=== PATIENT | male | born 1960 | race Caucasian/White ===

== ENCOUNTER 2017-02-07 12:28 | Inpatient (IN) | payer MEDICAID ==
[~2017-02-07] VITALS: Ht 177.8 cm; Wt 68.0 kg
[2017-02-07 13:10] VITALS: BP 105/78
[2017-02-07] MEDS ORDERED: ACETAMINOPHEN500 M7 PO (13:46)
[2017-02-07] MEDS ORDERED: PRO-AMATINE5 M1 ORAL (13:46)
[2017-02-07] MEDS ORDERED: MULTIVITAMINS1 EA14 PO (13:46)
[2017-02-07] MEDS ORDERED: SYNTHROID75 MCG ORAL (13:46)
[2017-02-07] MEDS ORDERED: NEOMYCIN SULFA500 MG ORAL (13:46)
[2017-02-07] MEDS ORDERED: SPIRONOLACTONE1 EACH ORAL (13:46)
[2017-02-07] MEDS ORDERED: LASIX20 M1 ORAL (13:46)
[2017-02-07 13:51] LABS: BASOPHILS % (AUTO) 1.5 % (0.0-2.0); EOSINOPHILS % (AUTO) 0.2 % (0.0-3.0); MEAN CORPUSCULAR HEMOGLOBIN 34.7 PG (27.0-31.0); MEAN CORPUSCULAR HGB CONC 31.6 G/DL (32.0-36.0); MEAN CORPUSCULAR VOLUME 110 FL (80-99); MEAN PLATELET VOLUME 5.3 FL (6.5-10.1); MONOCYTES % (AUTO) 9.6 % (1.0-10.0); NEUTROPHILS % (AUTO) 50.7 % (45.0-75.0); PLATELET COUNT 166 K/UL (150-450); RED BLOOD COUNT 3.07 M/UL (4.70-6.10); RED CELL DISTRIBUTION WIDTH 15.1 % (11.6-14.8); WHITE BLOOD COUNT 7.5 K/UL (4.8-10.8)
[2017-02-07 13:54] LABS: ANION GAP 10 mmol/L (5-15); CALCIUM 8.2 MG/DL (8.5-10.1); CARBON DIOXIDE 27 MMOL/L (21-32); CHLORIDE 99 MMOL/L (98-107); CREATININE 0.6 MG/DL (0.55-1.30); GLOMERULAR FILTRATION RATE > 60 mL/min (>60); POTASSIUM 3.8 MMOL/L (3.5-5.1); SODIUM 136 MMOL/L (136-145)
--- NOTE | 2017-02-07 13:56 | Diagnostic Imaging Report ---
Indication: Dyspnea Comparison: None A single view chest radiograph was obtained. Findings: Mild linear atelectasis left midlung demonstrated. Lung volumes are low bilaterally. Heart size is normal. Bones are slight osteopenic. Impression: No acute findings
[2017-02-07 13:57] LABS: INR 1.1 (0.9-1.1)
[2017-02-07 13:59] LABS: ALANINE AMINOTRANSFERASE 18 U/L (12-78); ALBUMIN/GLOBULIN RATIO 0.5 (1.0-2.7); ASPARTATE AMINO TRANSFERASE 38 U/L (15-37); LIPASE 597 U/L (73-393); TOTAL PROTEIN 7.7 G/DL (6.4-8.2)
[2017-02-07] MEDS ORDERED: Morphine Sulfate 4mg/ml Inj IVP ONE (14:30)
[2017-02-07 14:32] LABS: APPEARANCE,URINE CLEAR; KETONES,URINE NEGATIVE (NEGATIVE); LEUKOCYTE ESTERASE ,URINE NEGATIVE (NEGATIVE); NITRITE,URINE NEGATIVE (NEGATIVE); PH,URINE 6 (4.5-8.0); PROTEIN,URINE NEGATIVE (NEGATIVE); UROBILINOGEN,URINE NORMAL MG/DL (0.0-1.0)
--- NOTE | 2017-02-07 14:41 | Diagnostic Imaging Report ---
Indication: Back pain Technique: Continuous helical transaxial imaging of the lumbar spine was obtained from the lung bases to the pubic symphysis. No IV contrast was administered. Coronal 2-D reformats were also obtained. Study obtained in a Siemens sensation [address] Total Dose length Product (DLP): [address] Dose Index Volume (CTDIvol): . 25, 16.07 mGy Comparison: None Findings: No fracture seen. There is interbody fusion of L4-5. Moderate disc narrowing, vacuum phenomena and endplate spurs demonstrated at multiple levels. Spurring of the facet joints also demonstrated at multiple levels solid hypertrophy noted. Aorta is moderately calcified. There is ascites incidentally noted within the abdomen. Impression: No acute injury identified Moderate degenerative changes as described above Ascites Atherosclerotic disease The CT scanner at [facility] is accredited by the [employer] and the scans are performed using dose optimization techniques as appropriate to a performed exam including Automatic Exposure control.
[2017-02-07 15:00] VITALS: BP 111/78
--- NOTE | 2017-02-07 16:20 | GI Initial Consult Note ---
Zavala,Elida Daniel NZunildaPZunilda 02/07/17 1620: History of Present Illness General Date patient seen: Feb 07, 2017 Time patient seen: 16:09 Reason for Hospitalization: Abdominal Pain Referring physician: MAYRA RICHARDSON Reason for Consultation: ALCOHOLIC PANCREATITIS Present Illness HPI 56 year old male seen in ED today with history of cirrhosis presents today s/p fall c/o of severe backpain. CT spine negative. In addition, patient has severely distended abdomen 2/2 ascites. The patient denies any heavy drinking, states he has an occasional beer. The patient able to ambulate, but has generalized weakness. Labs show hyperchromic macrocytic anemia, elevated lipase , elevated alkaline phosphatase. Unknown history of endoscopic / colonoscopies. Patient cannot recall his last paracentesis. Home Meds Reported Medications Spironolact/Hydrochlorothiazid (SPIRONOLACTONE-HCTZ 25-25 TAB) 1 Each Tablet, 1 TAB ORAL BID, TAB 02/07/17 Furosemide* (LASIX*) 20 Mg Tablet, 20 MG ORAL TWICE A DAY, TAB 02/07/17 Midodrine (Midodrine HCl) 5 Mg Tablet, 5 MG ORAL TID, TAB 02/07/17 Levothyroxine Sodium* (SYNTHROID*) 75 Mcg Tablet, 75 MCG ORAL DAILY, TAB Take in the morning on an empty stomach, at least 30 minutes before food. 02/07/17 Acetaminophen (ACETAMINOPHEN) 500 Mg Capsule, 500 MG PO Q6HR, CAP 02/07/17 Multivitamin (Multivitamins) 1 Each Tablet, 1 EACH PO DAILY, TAB 02/07/17 Neomycin Sulfate (Neomycin Sulfate) 500 Mg Tablet, 500 MG ORAL QID, TAB 02/07/17 Med list reviewed/reconciled: Yes Allergies: Coded Allergies: PENICILLINS (Verified Allergy, Unknown, 02/07/17) Patient History History Provided By: Patient, Medical Record Social History: Reports: alcohol use - etoh abuse Review of Systems All Other Systems: negative except mentioned in HPI Physical Exam Vital Signs Date Time Temp Pulse Resp B/P (MAP) Pulse Ox O2 Delivery O2 Flow Rate FiO2 02/07/17 12:39 97.9 120 14 110/67 98 Room Air Sp02 EP Interpretation: reviewed, normal Labs Laboratory Tests Test 02/07/17 13:20 02/07/17 14:16 White Blood Count 7.5 K/UL (4.8-10.8) Red Blood Count 3.07 M/UL (4.70-6.10) L Hemoglobin 10.7 G/DL (14.2-18.0) L Hematocrit 33.7 % (42.0-52.0) L Mean Corpuscular Volume 110 FL (80-99) H Mean Corpuscular Hemoglobin 34.7 PG (27.0-31.0) H Mean Corpuscular Hemoglobin Concent 31.6 G/DL (32.0-36.0) L Red Cell Distribution Width 15.1 % (11.6-14.8) H Platelet Count 166 K/UL (150-450) Mean Platelet Volume 5.3 FL (6.5-10.1) L Neutrophils (%) (Auto) 50.7 % (45.0-75.0) Lymphocytes (%) (Auto) 38.0 % (20.0-45.0) Monocytes (%) (Auto) 9.6 % (1.0-10.0) Eosinophils (%) (Auto) 0.2 % (0.0-3.0) Basophils (%) (Auto) 1.5 % (0.0-2.0) Prothrombin Time 11.0 SEC (9.30-11.50) Prothromb Time International Ratio 1.1 (0.9-1.1) Activated Partial Thromboplast Time 28 SEC (23-33) Sodium Level 136 MMOL/L (136-145) Potassium Level 3.8 MMOL/L (3.5-5.1) Chloride Level 99 MMOL/L (98-107) Carbon Dioxide Level 27 MMOL/L (21-32) Anion Gap 10 mmol/L (5-15) Blood Urea Nitrogen 3 mg/dL (7-18) L Creatinine 0.6 MG/DL (0.55-1.30) Estimat Glomerular Filtration Rate > 60 mL/min (>60) Glucose Level 88 MG/DL (74-106) Calcium Level 8.2 MG/DL (8.5-10.1) L Total Bilirubin 0.7 MG/DL (0.2-1.0) Aspartate Amino Transf (AST/SGOT) 38 U/L (15-37) H Alanine Aminotransferase (ALT/SGPT) 18 U/L (12-78) Alkaline Phosphatase 210 U/L (46-116) H Total Protein 7.7 G/DL (6.4-8.2) Albumin 2.4 G/DL (3.4-5.0) L Globulin 5.3 g/dL Albumin/Globulin Ratio 0.5 (1.0-2.7) L Lipase 597 U/L (73-393) H Urine Color Pale yellow Urine Appearance Clear Urine pH 6 (4.5-8.0) Urine Specific [place] 1.010 (1.005-1.035) Urine Protein Negative (NEGATIVE) Urine Glucose (UA) Negative (NEGATIVE) Urine Ketones Negative (NEGATIVE) Urine Occult Blood Negative (NEGATIVE) Urine Nitrite Negative (NEGATIVE) Urine Bilirubin Negative (NEGATIVE) Urine Urobilinogen Normal MG/DL (0.0-1.0) Urine Leukocyte Esterase Negative (NEGATIVE) General Appearance: well appearing, no apparent distress, alert, thin Head: normocephalic EENT: PERRL/EOMI, normal ENT inspection Neck: supple Respiratory: normal breath sounds, no respiratory distress Cardiovascular: normal rate Gastrointestinal: normal inspection, non tender, soft, normal bowel sounds, non -distended Rectal: deferred Genitourinary: deferred Musculoskeletal: normal inspection, back normal Neurologic: normal inspection, alert, oriented x3, responsive Psychiatric: normal inspection, judgement/insight normal, memory normal Skin: no rash, warm/dry, palpation normal, well hydrated, jaundice Lymphatic: normal inspection, no adenopathy GI: Plan Problems: (1) Liver cirrhosis (2) Alcoholic pancreatitis (3) ETOH abuse Plan ordered paracentesis >> r/o SBP - CLD now, NPO + IVFs @ [facility] for abdominal U/S banana bag x 1 ppi repeat lipase fu labs, B12/folate OB stool r/o GI bleed consider outpatient EGD to evaluate for esophageal varices Discussed with Dr. Burnett. Thank you for this patient referral, we will follow. MELBA BURNETT 02/08/17 1008: History of Present Illness General Reason for Hospitalization: Abdominal Pain Present Illness Home Meds Reported Medications Spironolact/Hydrochlorothiazid (SPIRONOLACTONE-HCTZ 25-25 TAB) 1 Each Tablet, 1 TAB ORAL BID, TAB 02/07/17 Furosemide* (LASIX*) 20 Mg Tablet, 20 MG ORAL TWICE A DAY, TAB 02/07/17 Midodrine (Midodrine HCl) 5 Mg Tablet, 5 MG ORAL TID, TAB 02/07/17 Levothyroxine Sodium* (SYNTHROID*) 75 Mcg Tablet, 75 MCG ORAL DAILY, TAB Take in the morning on an empty stomach, at least 30 minutes before food. 02/07/17 Acetaminophen (ACETAMINOPHEN) 500 Mg Capsule, 500 MG PO Q6HR, CAP 02/07/17 Multivitamin (Multivitamins) 1 Each Tablet, 1 EACH PO DAILY, TAB 02/07/17 Neomycin Sulfate (Neomycin Sulfate) 500 Mg Tablet, 500 MG ORAL QID, TAB 02/07/17 Allergies: Coded Allergies: PENICILLINS (Verified Allergy, Unknown, 02/07/17) GI: Plan Plan The patient was seen and examined at bedside and all new and available data was reviewed in the patients chart. I agree with the above findings, impression and plan. (Patient seen earlier today. Signature stamp does not reflect patient encounter time.). - MD Sally LoweBanner Daniel N.PZunilda Feb 07, 2017 16:20 MELBA BURNETT Feb 08, 2017 10:08
--- NOTE | 2017-02-07 16:50 | Emergency Room Report ---
History of Present Illness General Chief Complaint: Abdominal Pain Source: Patient, Medical Record Present Illness HPI Patient is a 48-year-old male who presented after increased abdominal pain as well as abdominal distention. Patient had recent fall and was noted to have increased back pain. The patient states he did have increased difficulty with ambulation. The patient reports having prior history of liver disease. He states he was drinking some alcohol earlier in the day. The patient denied hematemesis or bloody stools. Patient gradual onset of symptoms. 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 Review of Systems All Other Systems: negative except mentioned in HPI Physical Exam Vital Signs Date Time Temp Pulse Resp B/P (MAP) Pulse Ox O2 Delivery O2 Flow Rate FiO2 02/07/17 12:39 97.9 120 14 110/67 98 Room Air 02/07/17 15:00 2.0 Sp02 EP Interpretation: reviewed, normal General Appearance: normal inspection, well appearing, no apparent distress, alert, GCS 15, Chronically Ill Head: atraumatic ENT: normal ENT inspection, hearing grossly normal, normal voice Neck: normal inspection, full range of motion, supple, no bony tend Respiratory: normal inspection, lungs clear, normal breath sounds, no respiratory distress, no retraction, no wheezing Cardiovascular #1: regular rate, rhythm, no edema Gastrointestinal: soft, no guarding, no hernia, distended - fluid wave nontender Genitourinary: no CVA tenderness Musculoskeletal: normal inspection, back normal, normal range of motion Neurologic: normal inspection, alert, oriented x3, responsive, hair worker III-XII nml as tested, motor strength/tone normal, DTRs symmetric, speech normal Psychiatric: normal inspection, judgement/insight normal, mood/affect normal Skin: normal inspection, normal color, no rash Medical Decision Making Diagnostic Impression: Primary Impression: Alcoholic cirrhosis Additional Impression: Alcoholic pancreatitis ER Course Patient presented for abdominal pain. Differential diagnoses included ischemic bowel, appendicitis, perforated viscus, abdominal aortic aneurysm, inferior myocardial infarction, viral gastroenteritis Because of complexity of patient's case laboratory testing and imaging studies were ordered. Laboratory testing showed elevated lipase consistent with pancreatitis. The patient was given IV pain medications. Patient was discussed with Dr. Acevedo for inpatient management for panel physician. Labs Test 02/07/17 13:20 02/07/17 14:16 White Blood Count 7.5 K/UL (4.8-10.8) Red Blood Count 3.07 M/UL (4.70-6.10) Hemoglobin 10.7 G/DL (14.2-18.0) Hematocrit 33.7 % (42.0-52.0) Mean Corpuscular Volume 110 FL (80-99) Mean Corpuscular Hemoglobin 34.7 PG (27.0-31.0) Mean Corpuscular Hemoglobin Concent 31.6 G/DL (32.0-36.0) Red Cell Distribution Width 15.1 % (11.6-14.8) Platelet Count 166 K/UL (150-450) Mean Platelet Volume 5.3 FL (6.5-10.1) Neutrophils (%) (Auto) 50.7 % (45.0-75.0) Lymphocytes (%) (Auto) 38.0 % (20.0-45.0) Monocytes (%) (Auto) 9.6 % (1.0-10.0) Eosinophils (%) (Auto) 0.2 % (0.0-3.0) Basophils (%) (Auto) 1.5 % (0.0-2.0) Prothrombin Time 11.0 SEC (9.30-11.50) Prothromb Time International Ratio 1.1 (0.9-1.1) Activated Partial Thromboplast Time 28 SEC (23-33) Sodium Level 136 MMOL/L (136-145) Potassium Level 3.8 MMOL/L (3.5-5.1) Chloride Level 99 MMOL/L (98-107) Carbon Dioxide Level 27 MMOL/L (21-32) Anion Gap 10 mmol/L (5-15) Blood Urea Nitrogen 3 mg/dL (7-18) Creatinine 0.6 MG/DL (0.55-1.30) Estimat Glomerular Filtration Rate > 60 mL/min (>60) Glucose Level 88 MG/DL (74-106) Calcium Level 8.2 MG/DL (8.5-10.1) Total Bilirubin 0.7 MG/DL (0.2-1.0) Aspartate Amino Transf (AST/SGOT) 38 U/L (15-37) Alanine Aminotransferase (ALT/SGPT) 18 U/L (12-78) Alkaline Phosphatase 210 U/L (46-116) Total Protein 7.7 G/DL (6.4-8.2) Albumin 2.4 G/DL (3.4-5.0) Globulin 5.3 g/dL Albumin/Globulin Ratio 0.5 (1.0-2.7) Lipase 597 U/L (73-393) Urine Color Pale yellow Urine Appearance Clear Urine pH 6 (4.5-8.0) Urine Specific [place] 1.010 (1.005-1.035) Urine Protein Negative (NEGATIVE) Urine Glucose (UA) Negative (NEGATIVE) Urine Ketones Negative (NEGATIVE) Urine Occult Blood Negative (NEGATIVE) Urine Nitrite Negative (NEGATIVE) Urine Bilirubin Negative (NEGATIVE) Urine Urobilinogen Normal MG/DL (0.0-1.0) Urine Leukocyte Esterase Negative (NEGATIVE) Last Vital Signs Date Time Temp Pulse Resp B/P (MAP) Pulse Ox O2 Delivery O2 Flow Rate FiO2 02/07/17 16:14 99 17 111/81 96 Nasal Cannula 2.0 02/07/17 15:00 98.0 Status: unchanged Disposition: ADMITTED INPATIENT Condition: Serious Referrals: NOT CHOSEN FRED/,REFERRING (PCP) Héctor Coronel Feb 07, 2017 16:50
[2017-02-07 17:07] VITALS: BP 111/73
[2017-02-07] MEDS ORDERED: Folic Acid 1 MG, Magnesium Sulfate 2,000 MG, Multivitamin - 12 Injection 10 ML in NS w/... IV SCH (18:00)
[2017-02-07] MEDS ORDERED: Thiamine HCl 100 MG in NS 55 ML IV SCH (18:00)
--- NOTE | 2017-02-07 18:29 | Consultation ---
Consult Note Consult Note Patient is a 48-year-old male who presented after increased abdominal pain as well as abdominal distention. Patient had recent fall and was noted to have increased back pain. The patient states he did have increased difficulty with ambulation. The patient reports having prior history of liver disease. He states he was drinking some alcohol earlier in the day. The patient denied hematemesis or bloody stools. Patient gradual onset of symptoms. He reports making urine Allergies: Coded Allergies: PENICILLINS (Verified Allergy, Unknown, 02/07/17) interviewed examined massive ascitis Assessment/Plan No renal issues- BP and UA and renal parameters OK Alcoholic liver disease and Cirrhosis with Ascitis Pancreatitis Anemia Per GI Monitor renal parameters Anemia HOLDEN Husain Feb 07, 2017 18:28
[2017-02-07] MEDS: Morphine Sulfate 4mg/ml Inj IVP PRN (19:52)
[2017-02-07 20:00] VITALS: BP 110/73
[2017-02-07] MEDS ORDERED: Thiamine 100mg in D5W 55ml IVPB SCH (22:00)
[2017-02-08 00:03] VITALS: BP 103/59
[2017-02-08 04:00] VITALS: BP 113/69
[2017-02-08 06:31] LABS: BASOPHILS % (AUTO) 2.6 % (0.0-2.0); EOSINOPHILS % (AUTO) 0.9 % (0.0-3.0); LYMPHOCYTES % (AUTO) 27.6 % (20.0-45.0); MEAN CORPUSCULAR HEMOGLOBIN 37.6 PG (27.0-31.0); MEAN CORPUSCULAR HGB CONC 34.8 G/DL (32.0-36.0); MEAN CORPUSCULAR VOLUME 108 FL (80-99); MONOCYTES % (AUTO) 12.9 % (1.0-10.0); PLATELET COUNT 130 K/UL (150-450); RED BLOOD COUNT 2.79 M/UL (4.70-6.10); RED CELL DISTRIBUTION WIDTH 15.5 % (11.6-14.8)
[2017-02-08 07:19] LABS: CRP QUANT 0.8 mg/dL (0.00-0.90); MAGNESIUM 1.6 MG/DL (1.8-2.4); PHOSPHORUS 3.5 MG/DL (2.5-4.9); URIC ACID 7.2 MG/DL (2.6-7.2)
[2017-02-08 07:26] LABS: AMMONIA 25 umol/L (11-32)
[2017-02-08 07:29] LABS: ALANINE AMINOTRANSFERASE 15 U/L (12-78); ALBUMIN/GLOBULIN RATIO 0.4 (1.0-2.7); ANION GAP 7 mmol/L (5-15); ASPARTATE AMINO TRANSFERASE 34 U/L (15-37); CALCIUM 8.3 MG/DL (8.5-10.1); CARBON DIOXIDE 29 MMOL/L (21-32); CHLORIDE 102 MMOL/L (98-107); CHOLESTEROL 107 MG/DL (< 200); CREATININE 0.7 MG/DL (0.55-1.30); FERRITIN 291 NG/ML (8-388); GLOMERULAR FILTRATION RATE > 60 mL/min (>60); LIPASE 174 U/L (73-393); POTASSIUM 4.3 MMOL/L (3.5-5.1); SODIUM 138 MMOL/L (136-145); THYROID STIMULATING HORMONE 12.011 uiU/mL (0.358-3.740); TOTAL PROTEIN 7.2 G/DL (6.4-8.2)
[2017-02-08 07:47] LABS: HEMOGLOBIN A1C 4.1 % (4.3-6.0)
[2017-02-08 08:00] VITALS: BP 143/80
[2017-02-08 08:03] LABS: FOLIC ACID 17.4 NG/ML (3.1-17.5)
[2017-02-08] MEDS: Midodrine 10mg tab ORAL SCH ×3 (08:13→17:37)
[2017-02-08] MEDS: Morphine Sulfate 4mg/ml Inj IVP PRN (08:13)
--- NOTE | 2017-02-08 08:32 | Consultation ---
History of Present Illness General Chief Complaint: Abdominal Pain Referring physician: MAYRA RICHARDSON Reason for Consultation: ALCOHOLIC PANCREATITIS Present Illness Allergies: Coded Allergies: PENICILLINS (Verified Allergy, Unknown, 02/07/17) Medication History Scheduled Acetaminophen (Acetaminophen), 500 MG PO Q6HR, (Reported) Furosemide* (Lasix*), 20 MG ORAL TWICE A DAY, (Reported) Levothyroxine Sodium* (Synthroid*), 75 MCG ORAL DAILY, (Reported) Midodrine (Midodrine HCl), 5 MG ORAL TID, (Reported) Multivitamin (Multivitamins), 1 EACH PO DAILY, (Reported) Neomycin Sulfate (Neomycin Sulfate), 500 MG ORAL QID, (Reported) Spironolact/Hydrochlorothiazid (Spironolactone-Hctz 25-25 Tab), 1 TAB ORAL BID, (Reported) Patient History Healthcare decision maker Resuscitation status Full Code Advanced Directive on File No Physical Exam Last 24 Hour Vital Signs Date Time Temp Pulse Resp B/P (MAP) Pulse Ox O2 Delivery O2 Flow Rate FiO2 02/08/17 04:00 100 02/08/17 04:00 97.0 102 18 113/69 95 Nasal Cannula 2.0 28 02/08/17 00:03 97.0 101 20 103/59 95 Nasal Cannula 2.0 28 02/08/17 00:00 104 02/07/17 20:00 98.1 113 20 110/73 95 Nasal Cannula 2.0 02/07/17 20:00 107 02/07/17 19:30 Nasal Cannula 2.0 28 02/07/17 19:30 94 Nasal Cannula 2.0 28 02/07/17 17:07 97.7 112 21 111/73 96 Nasal Cannula 2.0 02/07/17 16:14 99 17 111/81 96 Nasal Cannula 2.0 02/07/17 15:00 98.0 105 17 111/78 95 Nasal Cannula 2.0 02/07/17 13:10 98.1 116 20 105/78 95 Room Air 02/07/17 12:39 97.9 120 14 110/67 98 Room Air Laboratory Tests Test 02/07/17 13:20 02/07/17 14:16 02/08/17 05:50 White Blood Count 7.5 K/UL (4.8-10.8) 6.0 K/UL (4.8-10.8) Red Blood Count 3.07 M/UL (4.70-6.10) L 2.79 M/UL (4.70-6.10) L Hemoglobin 10.7 G/DL (14.2-18.0) L 10.5 G/DL (14.2-18.0) L Hematocrit 33.7 % (42.0-52.0) L 30.3 % (42.0-52.0) L Mean Corpuscular Volume 110 FL (80-99) H 108 FL (80-99) H Mean Corpuscular Hemoglobin 34.7 PG (27.0-31.0) H 37.6 PG (27.0-31.0) H Mean Corpuscular Hemoglobin Concent 31.6 G/DL (32.0-36.0) L 34.8 G/DL (32.0-36.0) Red Cell Distribution Width 15.1 % (11.6-14.8) H 15.5 % (11.6-14.8) H Platelet Count 166 K/UL (150-450) 130 K/UL (150-450) L Mean Platelet Volume 5.3 FL (6.5-10.1) L 6.0 FL (6.5-10.1) L Neutrophils (%) (Auto) 50.7 % (45.0-75.0) 56.0 % (45.0-75.0) Lymphocytes (%) (Auto) 38.0 % (20.0-45.0) 27.6 % (20.0-45.0) Monocytes (%) (Auto) 9.6 % (1.0-10.0) 12.9 % (1.0-10.0) H Eosinophils (%) (Auto) 0.2 % (0.0-3.0) 0.9 % (0.0-3.0) Basophils (%) (Auto) 1.5 % (0.0-2.0) 2.6 % (0.0-2.0) H Prothrombin Time 11.0 SEC (9.30-11.50) Prothromb Time International Ratio 1.1 (0.9-1.1) Activated Partial Thromboplast Time 28 SEC (23-33) Sodium Level 136 MMOL/L (136-145) 138 MMOL/L (136-145) Potassium Level 3.8 MMOL/L (3.5-5.1) 4.3 MMOL/L (3.5-5.1) Chloride Level 99 MMOL/L (98-107) 102 MMOL/L (98-107) Carbon Dioxide Level 27 MMOL/L (21-32) 29 MMOL/L (21-32) Anion Gap 10 mmol/L (5-15) 7 mmol/L (5-15) Blood Urea Nitrogen 3 mg/dL (7-18) L 4 mg/dL (7-18) L Creatinine 0.6 MG/DL (0.55-1.30) 0.7 MG/DL (0.55-1.30) Estimat Glomerular Filtration Rate > 60 mL/min (>60) > 60 mL/min (>60) Glucose Level 88 MG/DL (74-106) 81 MG/DL (74-106) Calcium Level 8.2 MG/DL (8.5-10.1) L 8.3 MG/DL (8.5-10.1) L Total Bilirubin 0.7 MG/DL (0.2-1.0) 0.7 MG/DL (0.2-1.0) Aspartate Amino Transf (AST/SGOT) 38 U/L (15-37) H 34 U/L (15-37) Alanine Aminotransferase (ALT/SGPT) 18 U/L (12-78) 15 U/L (12-78) Alkaline Phosphatase 210 U/L (46-116) H 196 U/L (46-116) H Total Protein 7.7 G/DL (6.4-8.2) 7.2 G/DL (6.4-8.2) Albumin 2.4 G/DL (3.4-5.0) L 2.2 G/DL (3.4-5.0) L Globulin 5.3 g/dL 5.0 g/dL Albumin/Globulin Ratio 0.5 (1.0-2.7) L 0.4 (1.0-2.7) L Lipase 597 U/L (73-393) H 174 U/L (73-393) Urine Color Pale yellow Urine Appearance Clear Urine pH 6 (4.5-8.0) Urine Specific [place] 1.010 (1.005-1.035) Urine Protein Negative (NEGATIVE) Urine Glucose (UA) Negative (NEGATIVE) Urine Ketones Negative (NEGATIVE) Urine Occult Blood Negative (NEGATIVE) Urine Nitrite Negative (NEGATIVE) Urine Bilirubin Negative (NEGATIVE) Urine Urobilinogen Normal MG/DL (0.0-1.0) Urine Leukocyte Esterase Negative (NEGATIVE) Hemoglobin A1c 4.1 % (4.3-6.0) L Uric Acid 7.2 MG/DL (2.6-7.2) Phosphorus Level 3.5 MG/DL (2.5-4.9) Magnesium Level 1.6 MG/DL (1.8-2.4) L Ferritin 291 NG/ML (8-388) Gamma Glutamyl Transpeptidase 148 U/L (5-85) H Ammonia 25 umol/L (11-32) Total Creatine Kinase 27 U/L (26-308) C-Reactive Protein, Quantitative 0.8 mg/dL (0.00-0.90) Pro-B-Type Natriuretic Peptide 100 pg/mL (0-125) Triglycerides Level 40 MG/DL (30-150) Cholesterol Level 107 MG/DL (< 200) LDL Cholesterol 44 mg/dL (<100) HDL Cholesterol 53 MG/DL (40-60) Cholesterol/HDL Ratio 2.0 (3.3-4.4) L Vitamin B12 Level 794 PG/ML (193-986) Folate 17.4 NG/ML (3.1-17.5) Thyroid Stimulating Hormone (TSH) 12.011 uiU/mL (0.358-3.740) Height (Feet): 5 Height (Inches): 10.00 Weight (Pounds): 150 Medications Current Medications Medications (Trade) Dose Ordered Sig/Jodie Route PRN Reason Start Time Stop Time Status Last Admin Dose Admin Lansoprazole (Prevacid) 30 mg DAILY ORAL 02/08/17 09:00 03/10/17 08:59 02/08/17 08:13 Midodrine (Pro-Amatine) 10 mg THREE TIMES A DAY ORAL 02/08/17 09:00 03/10/17 08:59 02/08/17 08:13 Morphine Sulfate (Morphine Sulfate) 4 mg EVERY 6 HOURS PRN IVP For Pain 02/07/17 19:00 02/14/17 18:59 02/08/17 08:13 Multivitamins 10 ml/Magnesium Sulfate 2000 mg/ Folic Acid 1 mg/ Sodium Chloride 1,014.2 ml @ 75 mls/hr Q24HRS IV 02/08/17 21:30 03/10/17 21:29 Sodium Chloride 1,000 ml @ 75 mls/hr Q24HRS IV 02/08/17 09:00 03/10/17 08:59 Thiamine HCl 100 mg/Dextrose 56 ml @ 112 mls/hr Q24H IVPB 02/07/17 22:00 03/09/17 21:59 02/07/17 22:48 Assessment/Plan Assessment/Plan (1) Intractable abdominal pain (2) Liver cirrhosis (3) Pancreatitis seen dictated THELMA SLADE Feb 08, 2017 08:32
[2017-02-08] MEDS ORDERED: NS w/KCl 20mEq 1,000 ML IV SCH ×2 (09:00→11:00)
--- NOTE | 2017-02-08 09:37 | Nephrology Progress Note ---
Assessment/Plan Problem List: (1) Liver cirrhosis (2) Alcoholic cirrhosis (3) Alcoholic pancreatitis (4) Hypothyroidism Assessment No renal issues- BP and UA and renal parameters OK Alcoholic liver disease and Cirrhosis with Ascitis Pancreatitis Anemia hypoThyroidism Plan Per GI Monitor renal parameters Anemia chen midodrine for low bp Subjective ROS Limited/Unobtainable: No Constitutional: Reports: malaise, weakness Objective Objective Last 24 Hour Vital Signs Date Time Temp Pulse Resp B/P (MAP) Pulse Ox O2 Delivery O2 Flow Rate FiO2 02/08/17 04:00 100 02/08/17 04:00 97.0 102 18 113/69 95 Nasal Cannula 2.0 28 02/08/17 00:03 97.0 101 20 103/59 95 Nasal Cannula 2.0 28 02/08/17 00:00 104 02/07/17 20:00 98.1 113 20 110/73 95 Nasal Cannula 2.0 02/07/17 20:00 107 02/07/17 19:30 Nasal Cannula 2.0 28 02/07/17 19:30 94 Nasal Cannula 2.0 28 02/07/17 17:07 97.7 112 21 111/73 96 Nasal Cannula 2.0 02/07/17 16:14 99 17 111/81 96 Nasal Cannula 2.0 02/07/17 15:00 98.0 105 17 111/78 95 Nasal Cannula 2.0 02/07/17 13:10 98.1 116 20 105/78 95 Room Air 02/07/17 12:39 97.9 120 14 110/67 98 Room Air Laboratory Tests 02/07/17 13:20: White Blood Count 7.5, Red Blood Count 3.07L, Hemoglobin 10.7L, Hematocrit 33.7L , Mean Corpuscular Volume 110H, Mean Corpuscular Hemoglobin 34.7H, Mean Corpuscular Hemoglobin Concent 31.6L, Red Cell Distribution Width 15.1H, Platelet Count 166, Mean Platelet Volume 5.3L, Neutrophils (%) (Auto) 50.7, Lymphocytes (%) (Auto) 38.0, Monocytes (%) (Auto) 9.6, Eosinophils (%) (Auto) 0.2, Basophils (%) (Auto) 1.5, Prothrombin Time 11.0, Prothromb Time International Ratio 1.1, Activated Partial Thromboplast Time 28, Sodium Level 136, Potassium Level 3.8, Chloride Level 99, Carbon Dioxide Level 27, Anion Gap 10, Blood Urea Nitrogen 3L, Creatinine 0.6, Estimat Glomerular Filtration Rate > 60, Glucose Level 88, Calcium Level 8.2L, Total Bilirubin 0.7, Aspartate Amino Transf (AST/SGOT) 38H, Alanine Aminotransferase (ALT/SGPT) 18, Alkaline Phosphatase 210H, Total Protein 7.7, Albumin 2.4L, Globulin 5.3, Albumin/ Globulin Ratio 0.5L, Lipase 597H 02/07/17 14:16: Urine Color Pale yellow, Urine Appearance Clear, Urine pH 6, Urine Specific [place] 1.010, Urine Protein Negative, Urine Glucose (UA) Negative, Urine Ketones Negative, Urine Occult Blood Negative, Urine Nitrite Negative, Urine Bilirubin Negative, Urine Urobilinogen Normal, Urine Leukocyte Esterase Negative 02/08/17 05:50: White Blood Count 6.0, Red Blood Count 2.79L, Hemoglobin 10.5L, Hematocrit 30.3L , Mean Corpuscular Volume 108H, Mean Corpuscular Hemoglobin 37.6H, Mean Corpuscular Hemoglobin Concent 34.8, Red Cell Distribution Width 15.5H, Platelet Count 130L, Mean Platelet Volume 6.0L, Neutrophils (%) (Auto) 56.0, Lymphocytes (%) (Auto) 27.6, Monocytes (%) (Auto) 12.9H, Eosinophils (%) (Auto) 0.9, Basophils (%) (Auto) 2.6H, Sodium Level 138, Potassium Level 4.3, Chloride Level 102, Carbon Dioxide Level 29, Anion Gap 7, Blood Urea Nitrogen 4L, Creatinine 0.7, Estimat Glomerular Filtration Rate > 60, Glucose Level 81, Calcium Level 8.3L, Total Bilirubin 0.7, Aspartate Amino Transf (AST/SGOT) 34, Alanine Aminotransferase (ALT/SGPT) 15, Alkaline Phosphatase 196H, Total Protein 7.2, Albumin 2.2L, Globulin 5.0, Albumin/Globulin Ratio 0.4L, Lipase 174 , Hemoglobin A1c 4.1L, Uric Acid 7.2, Phosphorus Level 3.5, Magnesium Level 1.6L , Ferritin 291, Gamma Glutamyl Transpeptidase 148H, Ammonia 25, Total Creatine Kinase 27, C-Reactive Protein, Quantitative 0.8, Pro-B-Type Natriuretic Peptide 100, Triglycerides Level 40, Cholesterol Level 107, LDL Cholesterol 44, HDL Cholesterol 53, Cholesterol/HDL Ratio 2.0L, Vitamin B12 Level 794, Folate 17.4, Thyroid Stimulating Hormone (TSH) 12.011H Height (Feet): 5 Height (Inches): 10.00 Weight (Pounds): 150 HOLDEN GILMORE Feb 08, 2017 09:37
[2017-02-08 09:55] LABS: IRON 46 ug/dL (50-175); TOTAL IRON BINDING CAPACITY 255 ug/dL (250-450)
--- NOTE | 2017-02-08 10:49 | GI Progress Note ---
Assessment/Plan Problems: (1) Alcoholic pancreatitis ICD Codes: K85.20 - Alcohol induced acute pancreatitis without necrosis or infection SNOMED: 333766178 (2) Liver cirrhosis ICD Codes: K74.60 - Unspecified cirrhosis of liver SNOMED: 47592444 (3) ETOH abuse ICD Codes: F10.10 - Alcohol abuse, uncomplicated SNOMED: 87453763 Status: unchanged Status Narrative Discussed with Dr. Maxwell. Assessment/Plan B12/folate WNL repeat lipase, now normal fu paracentesis >> r/o SBP okay for cardiac diet after procedure ppi OB stool r/o GI bleed PT eval fu labs consider outpatient EGD to evaluate for esophageal varices Subjective Gastrointestinal/Abdominal: Reports: abdomen distended Objective Last 24 Hour Vital Signs Date Time Temp Pulse Resp B/P (MAP) Pulse Ox O2 Delivery O2 Flow Rate FiO2 02/08/17 08:00 106 02/08/17 08:00 99.0 94 18 143/80 93 Room Air 02/08/17 04:00 100 02/08/17 04:00 97.0 102 18 113/69 95 Nasal Cannula 2.0 28 02/08/17 00:03 97.0 101 20 103/59 95 Nasal Cannula 2.0 28 02/08/17 00:00 104 02/07/17 20:00 98.1 113 20 110/73 95 Nasal Cannula 2.0 02/07/17 20:00 107 02/07/17 19:30 Nasal Cannula 2.0 28 02/07/17 19:30 94 Nasal Cannula 2.0 28 02/07/17 17:07 97.7 112 21 111/73 96 Nasal Cannula 2.0 02/07/17 16:14 99 17 111/81 96 Nasal Cannula 2.0 02/07/17 15:00 98.0 105 17 111/78 95 Nasal Cannula 2.0 02/07/17 13:10 98.1 116 20 105/78 95 Room Air 02/07/17 12:39 97.9 120 14 110/67 98 Room Air Laboratory Tests Test 02/07/17 13:20 02/07/17 14:16 02/08/17 05:50 White Blood Count 7.5 K/UL (4.8-10.8) 6.0 K/UL (4.8-10.8) Red Blood Count 3.07 M/UL (4.70-6.10) L 2.79 M/UL (4.70-6.10) L Hemoglobin 10.7 G/DL (14.2-18.0) L 10.5 G/DL (14.2-18.0) L Hematocrit 33.7 % (42.0-52.0) L 30.3 % (42.0-52.0) L Mean Corpuscular Volume 110 FL (80-99) H 108 FL (80-99) H Mean Corpuscular Hemoglobin 34.7 PG (27.0-31.0) H 37.6 PG (27.0-31.0) H Mean Corpuscular Hemoglobin Concent 31.6 G/DL (32.0-36.0) L 34.8 G/DL (32.0-36.0) Red Cell Distribution Width 15.1 % (11.6-14.8) H 15.5 % (11.6-14.8) H Platelet Count 166 K/UL (150-450) 130 K/UL (150-450) L Mean Platelet Volume 5.3 FL (6.5-10.1) L 6.0 FL (6.5-10.1) L Neutrophils (%) (Auto) 50.7 % (45.0-75.0) 56.0 % (45.0-75.0) Lymphocytes (%) (Auto) 38.0 % (20.0-45.0) 27.6 % (20.0-45.0) Monocytes (%) (Auto) 9.6 % (1.0-10.0) 12.9 % (1.0-10.0) H Eosinophils (%) (Auto) 0.2 % (0.0-3.0) 0.9 % (0.0-3.0) Basophils (%) (Auto) 1.5 % (0.0-2.0) 2.6 % (0.0-2.0) H Prothrombin Time 11.0 SEC (9.30-11.50) Prothromb Time International Ratio 1.1 (0.9-1.1) Activated Partial Thromboplast Time 28 SEC (23-33) Sodium Level 136 MMOL/L (136-145) 138 MMOL/L (136-145) Potassium Level 3.8 MMOL/L (3.5-5.1) 4.3 MMOL/L (3.5-5.1) Chloride Level 99 MMOL/L (98-107) 102 MMOL/L (98-107) Carbon Dioxide Level 27 MMOL/L (21-32) 29 MMOL/L (21-32) Anion Gap 10 mmol/L (5-15) 7 mmol/L (5-15) Blood Urea Nitrogen 3 mg/dL (7-18) L 4 mg/dL (7-18) L Creatinine 0.6 MG/DL (0.55-1.30) 0.7 MG/DL (0.55-1.30) Estimat Glomerular Filtration Rate > 60 mL/min (>60) > 60 mL/min (>60) Glucose Level 88 MG/DL (74-106) 81 MG/DL (74-106) Calcium Level 8.2 MG/DL (8.5-10.1) L 8.3 MG/DL (8.5-10.1) L Total Bilirubin 0.7 MG/DL (0.2-1.0) 0.7 MG/DL (0.2-1.0) Aspartate Amino Transf (AST/SGOT) 38 U/L (15-37) H 34 U/L (15-37) Alanine Aminotransferase (ALT/SGPT) 18 U/L (12-78) 15 U/L (12-78) Alkaline Phosphatase 210 U/L (46-116) H 196 U/L (46-116) H Total Protein 7.7 G/DL (6.4-8.2) 7.2 G/DL (6.4-8.2) Albumin 2.4 G/DL (3.4-5.0) L 2.2 G/DL (3.4-5.0) L Globulin 5.3 g/dL 5.0 g/dL Albumin/Globulin Ratio 0.5 (1.0-2.7) L 0.4 (1.0-2.7) L Lipase 597 U/L (73-393) H 174 U/L (73-393) Urine Color Pale yellow Urine Appearance Clear Urine pH 6 (4.5-8.0) Urine Specific Omega 1.010 (1.005-1.035) Urine Protein Negative (NEGATIVE) Urine Glucose (UA) Negative (NEGATIVE) Urine Ketones Negative (NEGATIVE) Urine Occult Blood Negative (NEGATIVE) Urine Nitrite Negative (NEGATIVE) Urine Bilirubin Negative (NEGATIVE) Urine Urobilinogen Normal MG/DL (0.0-1.0) Urine Leukocyte Esterase Negative (NEGATIVE) Hemoglobin A1c 4.1 % (4.3-6.0) L Uric Acid 7.2 MG/DL (2.6-7.2) Phosphorus Level 3.5 MG/DL (2.5-4.9) Magnesium Level 1.6 MG/DL (1.8-2.4) L Iron Level 46 ug/dL (50-175) L Total Iron Binding Capacity 255 ug/dL (250-450) Percent Iron Saturation 18 % (15-50) Unsaturated Iron Binding 209 ug/dL (112-346) Ferritin 291 NG/ML (8-388) Gamma Glutamyl Transpeptidase 148 U/L (5-85) H Ammonia 25 umol/L (11-32) Total Creatine Kinase 27 U/L (26-308) C-Reactive Protein, Quantitative 0.8 mg/dL (0.00-0.90) Pro-B-Type Natriuretic Peptide 100 pg/mL (0-125) Triglycerides Level 40 MG/DL (30-150) Cholesterol Level 107 MG/DL (< 200) LDL Cholesterol 44 mg/dL (<100) HDL Cholesterol 53 MG/DL (40-60) Cholesterol/HDL Ratio 2.0 (3.3-4.4) L Vitamin B12 Level 794 PG/ML (193-986) Folate 17.4 NG/ML (3.1-17.5) Thyroid Stimulating Hormone (TSH) 12.011 uiU/mL (0.358-3.740) Height (Feet): 5 Height (Inches): 10.00 Weight (Pounds): 150 General Appearance: WD/WN, no apparent distress, alert, thin Cardiovascular: normal rate Respiratory/Chest: normal breath sounds, no respiratory distress Abdominal Exam: normal bowel sounds, non tender, soft, distended, ascites Extremities: normal range of motion, non-tender Elida Zavlaa N.P. Feb 08, 2017 10:49
[2017-02-08] MEDS: HYDROmorphone 1mg/ml Carpuject IVP PRN ×3 (13:07→22:14)
--- NOTE | 2017-02-08 13:38 | Diagnostic Imaging Report ---
Indications: Ascites Technique: Ultrasound used to localize optimal puncture site. Sterile prepping and draping . Local anesthesia with 1% lidocaine. Under real-time ultrasound guidance, puncture peritoneal space using paracentesis needle. Stylet removed. Catheter placed to vacuum bottle suction. Total 9 liters of fluid aspirated. Patient tolerated procedure well, without immediate complication. Findings: Followup sonography demonstrates complete resolution of peritoneal fluid. Impression: Successful ultrasound-guided paracentesis, yielding 9 liters of yellow clear fluid
[2017-02-08 16:00] VITALS: BP 107/70
--- NOTE | 2017-02-08 16:16 | Consultation ---
DATE OF CONSULTATION: 02/08/2017 PAIN MANAGEMENT CONSULTATION CONSULTING PHYSICIAN: Renny Mcadams M.D. REFERRING PHYSICIAN: Gallito Acevedo M.D. PHYSICIAN SENIOR INFORMATION DEVELOPER: Jay Vee CHIEF COMPLAINT: Abdominal pain. HISTORY OF PRESENT ILLNESS: This is a 56-year-old male, who is being seen on the telemetry floor of [facility] for initial comprehensive pain management consultation. The patient reports that he has been having abdominal pain and abdominal distention for many years. He had increased pain with severe ascites, found to have liver cirrhosis, which is severe due to drinking alcohol earlier in the day. The pain has been severe at this time, rating at 10/10, admitted under the care of Dr. Acevedo at this time. We were consulted so that the patient would have adequate pain control here in the hospital, rating the pain at 10/10, describing as sharp, stabbing, increased pain with movement and nothing has been helped to relieve the pain, on morphine 4 mg IV every six hours with minimal pain relief. PAST MEDICAL HISTORY: Liver cirrhosis. PAST SURGICAL HISTORY: Lumbar surgery. ALLERGIES: Penicillin. MEDICATIONS: Tylenol, Lasix, Synthroid, midodrine, multivitamin, neomycin, and spironolactone. SOCIAL HISTORY: History of drinking alcohol. Denies IV drug abuse and smoking. REVIEW OF SYSTEMS: Denies rash, fever, chills, sweating, dizziness, drowsiness, blurred vision, sore throat, or change in weight. No shortness of breath or chest pain. No nausea, vomiting, diarrhea, or blood in the stool or urine. No bowel or bladder incontinence. No dysuria. He is complaining of abdominal pain. PHYSICAL EXAMINATION: GENERAL: Alert, awake, and oriented. VITAL SIGNS: Blood pressure 113/69, heart rate is 102, oxygen saturation is 95%, respiratory rate is 18, and temperature is 97 degrees Fahrenheit. HEENT: PERRLA. NECK: Range of motion is full in all directions. No tenderness to paracervical muscles. No adenopathy. LUNGS: Decreased breath sounds bilaterally. HEART: Regular. ABDOMEN: Distended with tenderness to palpation. BACK: Range of motion is decreased in flexion and extension with well-healed surgical scar noted in the midline of the lumbar spine. EXTREMITIES: Upper extremity range of motion is full in all directions. Motor is intact. No cyanosis. No clubbing. No edema. Sensory is intact. Reflexes are not obtainable. No adenopathy. Lower extremity motion is decreased due to the patient's pain and condition. Motor is 4/5 in all muscles bilaterally. No cyanosis. No clubbing. Sensory is intact. Reflexes are unobtainable. No adenopathy. ASSESSMENT AND PLAN: This is a 56-year-old male with intractable abdominal pain, liver cirrhosis, and pancreatitis. The patient will be discontinued off the morphine and started on Dilaudid 1 mg IV every 4 hours as needed for severe pain. Parameters will be set to hold for oversedation or systolic blood pressure below 90 or diastolic blood pressure below 60. The patient was discussed with Dr. Mcadams and Dr. Mcadams concurred. We will follow the patient. Thank you very much for the courtesy of this consultation. Renny Mcadams M.D. ROGELIO Vee DR: EDDIE JOB#: [id number] CC:
[2017-02-08 20:00] VITALS: BP 118/77
--- NOTE | 2017-02-08 21:01 | Consultation ---
DATE OF CONSULTATION: 02/08/2017 INFECTIOUS DISEASE CONSULTATION CONSULTING PHYSICIAN: Toñito Castellon M.D. This consultation is for coverage of Dr. Cruz. PRIMARY ATTENDING PHYSICIAN: Gallito Acevedo M.D. REASON FOR CONSULTATION: Pancreatitis and ascites. HISTORY OF PRESENT ILLNESS: This 56-year-old white male admitted yesterday complaining of abdominal pain, abdominal distention, and back pain. The patient states that he had a fall couple of weeks ago. He was hospitalized in [facility]. He seems to have alcoholic cirrhosis with ascites. No fever. No chills. PAST MEDICAL HISTORY: Hypothyroidism, cirrhosis, and fall. ALLERGIES: Allergic to penicillin, develops rash. MEDICATIONS: Getting , midodrine, hydromorphone, and thiamine. SOCIAL HISTORY: . No children. Denies smoking. He states that he quit alcohol three weeks ago. REVIEW OF SYSTEMS: No fever. No chills. He feels weak generally. No nausea. No vomiting. He has abdominal distention and pain, more in the right side. No problem passing urine. PHYSICAL EXAMINATION: GENERAL APPEARANCE: No acute distress, seems to be thin and cachectic. VITAL SIGNS: Temperature 97, pulse is 102, and blood pressure 113/69. HEAD AND NECK: [place] conjunctivae. No oral lesion. HEART: Tachycardic. LUNGS: Clear. ABDOMEN: Severely distended with ascites. EXTREMITIES: He has no edema. He has severe muscle atrophy. LABORATORY DATA: WBC 6, hemoglobin 10.5, hematocrit 30.3, and platelets 130. Sodium 138, potassium 4.3, chloride 102, bicarbonate 29, BUN 4, creatinine 0.7, and glucose 81. Albumin is 2.2. Lipase at the time of admission is 597. TSH is 12. IMPRESSION: 1. Pancreatitis, likely alcoholic. 2. The patient has also cirrhosis with ascites. 3. Has decreased albumin. 4. Has penicillin allergy. 5. Hypothyroidism. 6. Anemia. RECOMMENDATIONS: The patient will have paracentesis today. We will ask to send peritoneal fluid for WBC and culture. We will empirically start on Levaquin. At the end of my exam, I thank Dr. Acevedo, for involving me in the care of this patient. Toñito Castellon M.D. DR: GUZMAN JOB#: [id number] CC: TAI
[2017-02-08] MEDS ORDERED: FOLIC ACID IV SCH (21:30)
[2017-02-08] MEDS ORDERED: [UNRECOGNIZED DRUG - OTHER] IV SCH (21:30)
[2017-02-08] MEDS ORDERED: MAGNESIUM SULFATE IV SCH (21:30)
[2017-02-08] MEDS ORDERED: MULTIVITAMIN IV SCH (21:30)
[2017-02-08 23:51] VITALS: BP 111/67
--- NOTE | 2017-02-09 03:30 | History and Physical Report ---
DATE OF ADMISSION: 02/07/2017 HISTORY OF PRESENT ILLNESS: The patient has increased abdominal and low back pain, cirrhosis with ascites, and is also admitted for pancreatitis and abdominal pain. The patient is status post fall. He has had multiple falls in the past couple of weeks. He has also a history of spinal surgery. The patient has right elbow pain. The patient last time fell on the right side, no known complaints of left-sided pain. Also, exertional shortness of breath and has hepatitis C as well as cirrhosis due to alcohol. Denies hematuria. Denies nausea or vomiting. Denies left elbow pain. PAST MEDICAL HISTORY: Hepatitis C, alcoholic cirrhosis, hypertension, hypothyroidism, history of hypotension, subsequent falls. PAST SURGICAL HISTORY: Left arm surgery and spine surgery. ALLERGIES: Penicillin. MEDICATIONS: Currently, he is not taking any medications. SOCIAL HISTORY: History of smoking. History of drug abuse. He is homeless. Also has a history of alcohol abuse. FAMILY HISTORY: Noncontributory. REVIEW OF SYSTEMS: HEENT: Denies headaches. RESPIRATORY: Denies shortness of breath. Denies cough. CARDIOVASCULAR: Denies chest pain. GASTROINTESTINAL: Reports abdominal pain and worsening ascites. EXTREMITIES: Does have lower extremity pain. CENTRAL NERVOUS SYSTEM: No change in vision or speech pattern. Denies headaches. PHYSICAL EXAMINATION: VITAL SIGNS: Temperature is 99, pulse is 94, and blood pressure is 143/80. HEENT: PERRLA. NECK: Supple. No lymphadenopathy. CHEST: Clear to auscultation. GASTROINTESTINAL: Soft, distended. The patient does have ascites. EXTREMITIES: Has 1+ edema. NEUROLOGIC: Reflexes are equal on both sides. All the range of motion is intact and the pain is minimal. The patient is lying comfortably in the bed. LABORATORY DATA: WBC of 7.5, hemoglobin 10.7, and platelets 166. Sodium 136, potassium 3.8, BUN of 3, creatinine 0.6, and glucose of 88. AST of 38, ALT of 18, and alkaline phosphatase 210. ASSESSMENT AND PLAN: 1. Severe ascites. 2. Status post falls. 3. Alcoholic cirrhosis. I have asked Dr. Pepe and to see the patient and to rule out any infectious etiology and diagnoses. Gallito Acevedo M.D. DR: CALVIN JOB#: [id number] CC:
[2017-02-09 04:02] VITALS: BP 121/78
--- NOTE | 2017-02-09 05:31 | General Progress Note ---
Assessment/Plan Problem List: (1) ETOH abuse ICD Codes: F10.10 - Alcohol abuse, uncomplicated SNOMED: 38210933 (2) Hypothyroidism ICD Codes: E03.9 - Hypothyroidism, unspecified SNOMED: 86654450 (3) Alcoholic cirrhosis ICD Codes: K70.30 - Alcoholic cirrhosis of liver without ascites SNOMED: 235647310 Assessment/Plan on cardiac diet tolerating diet normal lipase ok to dc GI stand point Subjective ROS Limited/Unobtainable: Yes Allergies: Coded Allergies: PENICILLINS (Verified Allergy, Unknown, 02/07/17) Subjective no event Objective Last 24 Hour Vital Signs Date Time Temp Pulse Resp B/P (MAP) Pulse Ox O2 Delivery O2 Flow Rate FiO2 02/09/17 04:02 96.7 78 18 121/78 94 Room Air 02/09/17 00:00 90 02/08/17 23:51 97.9 87 18 111/67 92 Room Air 02/08/17 20:00 97.2 83 18 118/77 94 Room Air 02/08/17 20:00 77 02/08/17 19:30 93 Room Air 21 02/08/17 19:30 Room Air 21 02/08/17 16:00 98.4 92 18 107/70 97 Room Air 02/08/17 16:00 78 02/08/17 12:00 80 02/08/17 08:00 106 02/08/17 08:00 99.0 94 18 143/80 93 Room Air 02/08/17 07:21 Room Air 02/08/17 07:20 94 Room Air 21 Laboratory Tests 02/08/17 05:50: White Blood Count 6.0, Red Blood Count 2.79L, Hemoglobin 10.5L, Hematocrit 30.3L , Mean Corpuscular Volume 108H, Mean Corpuscular Hemoglobin 37.6H, Mean Corpuscular Hemoglobin Concent 34.8, Red Cell Distribution Width 15.5H, Platelet Count 130L, Mean Platelet Volume 6.0L, Neutrophils (%) (Auto) 56.0, Lymphocytes (%) (Auto) 27.6, Monocytes (%) (Auto) 12.9H, Eosinophils (%) (Auto) 0.9, Basophils (%) (Auto) 2.6H, Sodium Level 138, Potassium Level 4.3, Chloride Level 102, Carbon Dioxide Level 29, Anion Gap 7, Blood Urea Nitrogen 4L, Creatinine 0.7, Estimat Glomerular Filtration Rate > 60, Glucose Level 81, Hemoglobin A1c 4.1L, Uric Acid 7.2, Calcium Level 8.3L, Phosphorus Level 3.5, Magnesium Level 1.6L, Iron Level 46L, Total Iron Binding Capacity 255, Percent Iron Saturation 18, Unsaturated Iron Binding 209, Ferritin 291, Total Bilirubin 0.7, Gamma Glutamyl Transpeptidase 148H, Aspartate Amino Transf (AST/SGOT) 34, Alanine Aminotransferase (ALT/SGPT) 15, Alkaline Phosphatase 196H, Ammonia 25, Total Creatine Kinase 27, C-Reactive Protein, Quantitative 0.8, Pro-B-Type Natriuretic Peptide 100, Total Protein 7.2, Albumin 2.2L, Globulin 5.0, Albumin/ Globulin Ratio 0.4L, Triglycerides Level 40, Cholesterol Level 107, LDL Cholesterol 44, HDL Cholesterol 53, Cholesterol/HDL Ratio 2.0L, Lipase 174, Vitamin B12 Level 794, Folate 17.4, Thyroid Stimulating Hormone (TSH) 12.011H 02/08/17 11:45: Body Fluid Albumin [Pending] Height (Feet): 5 Height (Inches): 10.00 Weight (Pounds): 150 General Appearance: no apparent distress EENT: normal ENT inspection Neck: supple Cardiovascular: normal rate Respiratory/Chest: decreased breath sounds Abdomen: normal bowel sounds, non tender, soft Extremities: non-tender MELBA BURNETT Feb 09, 2017 05:31
[2017-02-09] MEDS: HYDROmorphone 1mg/ml Carpuject IVP PRN ×4 (05:39→20:00)
[2017-02-09 07:13] LABS: BASOPHILS % (AUTO) 1.8 % (0.0-2.0); EOSINOPHILS % (AUTO) 0.6 % (0.0-3.0); LYMPHOCYTES % (AUTO) 22.4 % (20.0-45.0); MEAN CORPUSCULAR HGB CONC 34.1 G/DL (32.0-36.0); MEAN CORPUSCULAR VOLUME 108 FL (80-99); MEAN PLATELET VOLUME 6.3 FL (6.5-10.1); MONOCYTES % (AUTO) 13.9 % (1.0-10.0); NEUTROPHILS % (AUTO) 61.4 % (45.0-75.0); PLATELET COUNT 112 K/UL (150-450); RED BLOOD COUNT 3.08 M/UL (4.70-6.10); RED CELL DISTRIBUTION WIDTH 15.2 % (11.6-14.8); WHITE BLOOD COUNT 5.9 K/UL (4.8-10.8)
[2017-02-09 07:29] LABS: ANION GAP 4 mmol/L (5-15); CALCIUM 8.3 MG/DL (8.5-10.1); CARBON DIOXIDE 30 MMOL/L (21-32); CHLORIDE 99 MMOL/L (98-107); CREATININE 0.7 MG/DL (0.55-1.30); GLOMERULAR FILTRATION RATE > 60 mL/min (>60); POTASSIUM 4.5 MMOL/L (3.5-5.1); SODIUM 133 MMOL/L (136-145)
[2017-02-09 08:00] VITALS: BP 108/66
--- NOTE | 2017-02-09 08:40 | Infectious Diseases Prog Note ---
Assessment/Plan Assessment/Plan A: Alcoholic cirrhosis Pancreatitis Ascites Anemia Hypothyroidism P; Continue Levaquin Will f/u cultures Subjective ROS Limited/Unobtainable: No Constitutional: Reports: other - doing better, better appetite today HEENT: Reports: no symptoms Respiratory: Reports: no symptoms Cardiovascular: Reports: no symptoms Gastrointestinal/Abdominal: Reports: other - has paracentesis yesterday with removal of 9 liters of fluid Genitourinary: Reports: no symptoms Neurologic: Reports: no symptoms Allergies: Coded Allergies: PENICILLINS (Verified Allergy, Unknown, 02/07/17) Objective Vital Signs Last 24 Hour Vital Signs Date Time Temp Pulse Resp B/P (MAP) Pulse Ox O2 Delivery O2 Flow Rate FiO2 02/09/17 08:00 97.0 96 21 108/66 95 Room Air 02/09/17 07:56 94 Room Air 02/09/17 07:56 Room Air 02/09/17 04:02 96.7 78 18 121/78 94 Room Air 02/09/17 04:00 90 02/09/17 00:00 90 02/08/17 23:51 97.9 87 18 111/67 92 Room Air 02/08/17 20:00 97.2 83 18 118/77 94 Room Air 02/08/17 20:00 77 02/08/17 19:30 93 Room Air 02/08/17 19:30 Room Air 02/08/17 16:00 98.4 92 18 107/70 97 Room Air 02/08/17 16:00 78 02/08/17 12:00 80 Height (Feet): 5 Height (Inches): 10.00 Weight (Pounds): 150 General Appearance: no acute distress HEENT: mucous membranes moist Respiratory/Chest: lungs clear Cardiovascular: normal rate Abdomen: other - ascites decreased Extremities: no edema Skin: other - nasal skin lesion Neurologic/Psychiatric: alert, oriented x 3, responsive Microbiology Date/Time Source Procedure Growth Status 02/07/17 16:10 Nasal Nares MRSA Culture - Final NO METHICILLIN RESISTANT STAPH AUREUS... Complete 02/07/17 16:10 Rectum VRE Culture - Final NO VANCOMYCIN RESISTANT ENTEROCOCCUS ... Complete Laboratory Tests Test 02/08/17 11:45 02/09/17 06:00 Body Fluid Albumin Pending White Blood Count 5.9 K/UL (4.8-10.8) Red Blood Count 3.08 M/UL (4.70-6.10) L Hemoglobin 11.4 G/DL (14.2-18.0) L Hematocrit 33.4 % (42.0-52.0) L Mean Corpuscular Volume 108 FL (80-99) H Mean Corpuscular Hemoglobin 37.0 PG (27.0-31.0) H Mean Corpuscular Hemoglobin Concent 34.1 G/DL (32.0-36.0) Red Cell Distribution Width 15.2 % (11.6-14.8) H Platelet Count 112 K/UL (150-450) L Mean Platelet Volume 6.3 FL (6.5-10.1) L Neutrophils (%) (Auto) 61.4 % (45.0-75.0) Lymphocytes (%) (Auto) 22.4 % (20.0-45.0) Monocytes (%) (Auto) 13.9 % (1.0-10.0) H Eosinophils (%) (Auto) 0.6 % (0.0-3.0) Basophils (%) (Auto) 1.8 % (0.0-2.0) Sodium Level 133 MMOL/L (136-145) L Potassium Level 4.5 MMOL/L (3.5-5.1) Chloride Level 99 MMOL/L (98-107) Carbon Dioxide Level 30 MMOL/L (21-32) Anion Gap 4 mmol/L (5-15) L Blood Urea Nitrogen 5 mg/dL (7-18) L Creatinine 0.7 MG/DL (0.55-1.30) Estimat Glomerular Filtration Rate > 60 mL/min (>60) Glucose Level 104 MG/DL (74-106) Calcium Level 8.3 MG/DL (8.5-10.1) L Current Medications Medications (Trade) Dose Ordered Sig/Jodie Route PRN Reason Start Time Stop Time Status Last Admin Dose Admin Hydromorphone HCl (Dilaudid) 1 mg Q4H PRN IVP Severe Pain (Pain Scale 7-10) 02/08/17 12:18 02/15/17 12:17 02/09/17 05:39 Lansoprazole (Prevacid) 30 mg DAILY ORAL 02/08/17 09:00 03/10/17 08:59 02/08/17 08:13 Levofloxacin (Levaquin) 750 mg DAILY ORAL 02/08/17 10:30 02/15/17 10:29 02/08/17 11:00 Levothyroxine Sodium (Synthroid) 50 mcg DAILY@0630 ORAL 02/09/17 06:30 03/11/17 06:29 02/09/17 05:39 Midodrine (Pro-Amatine) 10 mg THREE TIMES A DAY ORAL 02/08/17 09:00 03/10/17 08:59 02/08/17 17:37 Sodium Chloride 1,000 ml @ 50 mls/hr Q24HRS IV 02/08/17 11:00 03/10/17 10:59 02/08/17 13:17 Thiamine HCl (Vitamin B1) 100 mg DAILY ORAL 02/09/17 09:00 03/11/17 08:59 NOHEMI CHAUDHRY Feb 09, 2017 08:39
[2017-02-09] MEDS: Midodrine 10mg tab ORAL SCH ×3 (08:41→17:41)
[2017-02-09] MEDS: Thiamine 100mg tab ORAL SCH (08:41)
--- NOTE | 2017-02-09 09:16 | Nephrology Progress Note ---
Assessment/Plan Problem List: (1) Liver cirrhosis (2) Alcoholic cirrhosis (3) Alcoholic pancreatitis (4) Hypothyroidism Assessment No renal issues- BP and UA and renal parameters OK Alcoholic liver disease and Cirrhosis with Ascitis Pancreatitis Anemia hypoThyroidism Plan Per GI- DC IV fluid Monitor renal parameters Anemia chen midodrine for low bp Subjective ROS Limited/Unobtainable: No Constitutional: Reports: malaise Objective Objective Last 24 Hour Vital Signs Date Time Temp Pulse Resp B/P (MAP) Pulse Ox O2 Delivery O2 Flow Rate FiO2 02/09/17 08:00 97.0 96 21 108/66 95 Room Air 02/09/17 07:56 94 Room Air 21 02/09/17 07:56 Room Air 02/09/17 04:02 96.7 78 18 121/78 94 Room Air 02/09/17 04:00 90 02/09/17 00:00 90 02/08/17 23:51 97.9 87 18 111/67 92 Room Air 02/08/17 20:00 97.2 83 18 118/77 94 Room Air 02/08/17 20:00 77 02/08/17 19:30 93 Room Air 02/08/17 19:30 Room Air 21 02/08/17 16:00 98.4 92 18 107/70 97 Room Air 02/08/17 16:00 78 02/08/17 12:00 80 Laboratory Tests 02/08/17 11:45: Body Fluid Albumin [Pending] 02/09/17 06:00: White Blood Count 5.9, Red Blood Count 3.08L, Hemoglobin 11.4L, Hematocrit 33.4L , Mean Corpuscular Volume 108H, Mean Corpuscular Hemoglobin 37.0H, Mean Corpuscular Hemoglobin Concent 34.1, Red Cell Distribution Width 15.2H, Platelet Count 112L, Mean Platelet Volume 6.3L, Neutrophils (%) (Auto) 61.4, Lymphocytes (%) (Auto) 22.4, Monocytes (%) (Auto) 13.9H, Eosinophils (%) (Auto) 0.6, Basophils (%) (Auto) 1.8, Sodium Level 133L, Potassium Level 4.5, Chloride Level 99, Carbon Dioxide Level 30, Anion Gap 4L, Blood Urea Nitrogen 5L, Creatinine 0.7, Estimat Glomerular Filtration Rate > 60, Glucose Level 104, Calcium Level 8.3L Height (Feet): 5 Height (Inches): 10.00 Weight (Pounds): 150 General Appearance: no apparent distress Respiratory/Chest: decreased breath sounds Abdomen: distended, other - ascitis HOLDEN GILMORE Feb 09, 2017 09:16
[2017-02-09 12:00] VITALS: BP 102/66
--- NOTE | 2017-02-09 12:59 | General Progress Note ---
Assessment/Plan Problem List: (1) Liver cirrhosis ICD Codes: K74.60 - Unspecified cirrhosis of liver SNOMED: 96524820 (2) Alcoholic pancreatitis ICD Codes: K85.20 - Alcohol induced acute pancreatitis without necrosis or infection SNOMED: 576615144 (3) Alcoholic cirrhosis ICD Codes: K70.30 - Alcoholic cirrhosis of liver without ascites SNOMED: 444811091 (4) Hypothyroidism ICD Codes: E03.9 - Hypothyroidism, unspecified SNOMED: 74602561 Status: progressing Assessment/Plan afebrile abdominal pain cirrhosis ascites paracentesis per gi Subjective ROS Limited/Unobtainable: Yes Allergies: Coded Allergies: PENICILLINS (Verified Allergy, Unknown, 02/07/17) Objective Last 24 Hour Vital Signs Date Time Temp Pulse Resp B/P (MAP) Pulse Ox O2 Delivery O2 Flow Rate FiO2 02/09/17 12:00 97.7 83 20 102/66 95 Room Air 02/09/17 08:00 86 02/09/17 08:00 97.0 96 21 108/66 95 Room Air 02/09/17 07:56 94 Room Air 02/09/17 07:56 Room Air 02/09/17 04:02 96.7 78 18 121/78 94 Room Air 02/09/17 04:00 90 02/09/17 00:00 90 02/08/17 23:51 97.9 87 18 111/67 92 Room Air 02/08/17 20:00 97.2 83 18 118/77 94 Room Air 02/08/17 20:00 77 02/08/17 19:30 93 Room Air 02/08/17 19:30 Room Air 02/08/17 16:00 98.4 92 18 107/70 97 Room Air 02/08/17 16:00 78 Laboratory Tests 02/09/17 06:00: White Blood Count 5.9, Red Blood Count 3.08L, Hemoglobin 11.4L, Hematocrit 33.4L , Mean Corpuscular Volume 108H, Mean Corpuscular Hemoglobin 37.0H, Mean Corpuscular Hemoglobin Concent 34.1, Red Cell Distribution Width 15.2H, Platelet Count 112L, Mean Platelet Volume 6.3L, Neutrophils (%) (Auto) 61.4, Lymphocytes (%) (Auto) 22.4, Monocytes (%) (Auto) 13.9H, Eosinophils (%) (Auto) 0.6, Basophils (%) (Auto) 1.8, Sodium Level 133L, Potassium Level 4.5, Chloride Level 99, Carbon Dioxide Level 30, Anion Gap 4L, Blood Urea Nitrogen 5L, Creatinine 0.7, Estimat Glomerular Filtration Rate > 60, Glucose Level 104, Calcium Level 8.3L Height (Feet): 5 Height (Inches): 10.00 Weight (Pounds): 150 EENT: PERRL/EOMI Cardiovascular: normal rate Respiratory/Chest: lungs clear Abdomen: soft Gallito Acevedo MD Feb 09, 2017 12:59
[2017-02-09 16:00] VITALS: BP 103/63
[2017-02-09 20:00] VITALS: BP 112/69
[2017-02-10] VITALS: BP 98/63
[2017-02-10 04:00] VITALS: BP 94/63
--- NOTE | 2017-02-10 06:52 | General Progress Note ---
Assessment/Plan Problem List: (1) ETOH abuse ICD Codes: F10.10 - Alcohol abuse, uncomplicated SNOMED: 54187168 (2) Hypothyroidism ICD Codes: E03.9 - Hypothyroidism, unspecified SNOMED: 57116229 (3) Alcoholic cirrhosis ICD Codes: K70.30 - Alcoholic cirrhosis of liver without ascites SNOMED: 678110233 Assessment/Plan on cardiac diet tolerating diet normal lipase ok to dc GI stand point Subjective ROS Limited/Unobtainable: Yes Allergies: Coded Allergies: PENICILLINS (Verified Allergy, Unknown, 02/07/17) Subjective no event wants to go home Objective Last 24 Hour Vital Signs Date Time Temp Pulse Resp B/P (MAP) Pulse Ox O2 Delivery O2 Flow Rate FiO2 02/10/17 04:00 98.2 94 20 94/63 95 Room Air 02/10/17 03:40 74 02/10/17 00:00 98.1 93 20 98/63 97 Room Air 02/09/17 23:34 87 02/09/17 20:16 Room Air 02/09/17 20:16 96 Room Air 21 02/09/17 20:00 98.1 85 18 112/69 95 Room Air 02/09/17 19:53 72 02/09/17 16:00 85 02/09/17 16:00 97.1 87 19 103/63 95 Room Air 02/09/17 12:00 97.7 83 20 102/66 95 Room Air 02/09/17 12:00 88 02/09/17 08:00 86 02/09/17 08:00 97.0 96 21 108/66 95 Room Air 02/09/17 07:56 94 Room Air 21 02/09/17 07:56 Room Air 21 Laboratory Tests 02/09/17 17:05: Urine Random Sodium 17L 02/10/17 04:30: Stool Occult Blood [Pending] Height (Feet): 5 Height (Inches): 10.00 Weight (Pounds): 150 General Appearance: alert EENT: normal ENT inspection Neck: supple Cardiovascular: normal rate Respiratory/Chest: lungs clear Abdomen: normal bowel sounds, non tender, soft Extremities: non-tender MELBA BURNETT Feb 10, 2017 06:52
[2017-02-10 07:52] LABS: BASOPHILS % (AUTO) 1.5 % (0.0-2.0); EOSINOPHILS % (AUTO) 2.6 % (0.0-3.0); LYMPHOCYTES % (AUTO) 29.8 % (20.0-45.0); MEAN CORPUSCULAR HEMOGLOBIN 37.5 PG (27.0-31.0); MEAN CORPUSCULAR VOLUME 107 FL (80-99); MEAN PLATELET VOLUME 6.4 FL (6.5-10.1); MONOCYTES % (AUTO) 13.8 % (1.0-10.0); NEUTROPHILS % (AUTO) 52.3 % (45.0-75.0); PLATELET COUNT 102 K/UL (150-450); RED BLOOD COUNT 2.97 M/UL (4.70-6.10); RED CELL DISTRIBUTION WIDTH 14.7 % (11.6-14.8); WHITE BLOOD COUNT 4.9 K/UL (4.8-10.8)
[2017-02-10 08:00] VITALS: BP 109/70
[2017-02-10 08:12] LABS: ALANINE AMINOTRANSFERASE 10 U/L (12-78); ALBUMIN/GLOBULIN RATIO 0.4 (1.0-2.7); ANION GAP 5 mmol/L (5-15); ASPARTATE AMINO TRANSFERASE 26 U/L (15-37); CALCIUM 8.2 MG/DL (8.5-10.1); CARBON DIOXIDE 29 MMOL/L (21-32); CHLORIDE 100 MMOL/L (98-107); CREATININE 0.7 MG/DL (0.55-1.30); GLOMERULAR FILTRATION RATE > 60 mL/min (>60); POTASSIUM 3.6 MMOL/L (3.5-5.1); SODIUM 134 MMOL/L (136-145); TOTAL PROTEIN 6.3 G/DL (6.4-8.2)
[2017-02-10] MEDS: HYDROmorphone 1mg/ml Carpuject IVP PRN (08:17)
[2017-02-10] MEDS: Thiamine 100mg tab ORAL SCH (08:17)
[2017-02-10] MEDS: Midodrine 10mg tab ORAL SCH ×3 (08:17→17:00)
--- NOTE | 2017-02-10 08:23 | General Progress Note ---
Assessment/Plan Assessment/Plan (1) Intractable abdominal pain (2) Liver cirrhosis (3) Pancreatitis Pt will be discontinued off Dilaudid and started on Oxycodone 5mg PO 1 tab Q4H PRN severe pain. D/w Dr. Mcadams and he concurred. Subjective Date patient seen: Feb 10, 2017 Time patient seen: 07:45 - am Allergies: Coded Allergies: PENICILLINS (Verified Allergy, Unknown, 02/07/17) Subjective REVIEW OF SYSTEMS: Denies rash, fever, chills, sweating, dizziness, drowsiness, blurred vision, sore throat, or change in weight. No shortness of breath or chest pain. No nausea, vomiting, diarrhea, or blood in the stool or urine. No bowel or bladder incontinence. No dysuria. He is complaining of abdominal pain. SUBJECTIVE: Patient is in bed and reports that his pain is severe however explains that it has been reduced on the Dilaudid when it is requested. He has no signs of distress at this time. Objective Last 24 Hour Vital Signs Date Time Temp Pulse Resp B/P (MAP) Pulse Ox O2 Delivery O2 Flow Rate FiO2 02/10/17 08:00 97.8 102 18 109/70 95 Room Air 02/10/17 04:00 98.2 94 20 94/63 95 Room Air 02/10/17 03:40 74 02/10/17 00:00 98.1 93 20 98/63 97 Room Air 02/09/17 23:34 87 02/09/17 20:16 Room Air 02/09/17 20:16 96 Room Air 21 02/09/17 20:00 98.1 85 18 112/69 95 Room Air 02/09/17 19:53 72 02/09/17 16:00 85 02/09/17 16:00 97.1 87 19 103/63 95 Room Air 02/09/17 12:00 97.7 83 20 102/66 95 Room Air 02/09/17 12:00 88 Laboratory Tests 02/09/17 17:05: Urine Random Sodium 17L 02/10/17 04:30: Stool Occult Blood [Pending] 02/10/17 07:10: White Blood Count 4.9, Red Blood Count 2.97L, Hemoglobin 11.1L, Hematocrit 31.8L , Mean Corpuscular Volume 107H, Mean Corpuscular Hemoglobin 37.5H, Mean Corpuscular Hemoglobin Concent 35.0, Red Cell Distribution Width 14.7, Platelet Count 102L, Mean Platelet Volume 6.4L, Neutrophils (%) (Auto) 52.3, Lymphocytes (%) (Auto) 29.8, Monocytes (%) (Auto) 13.8H, Eosinophils (%) (Auto) 2.6, Basophils (%) (Auto) 1.5, Sodium Level 134L, Potassium Level 3.6, Chloride Level 100, Carbon Dioxide Level 29, Anion Gap 5, Blood Urea Nitrogen 4L, Creatinine 0.7, Estimat Glomerular Filtration Rate > 60, Glucose Level 90, Calcium Level 8.2L, Total Bilirubin 0.8, Aspartate Amino Transf (AST/SGOT) 26, Alanine Aminotransferase (ALT/SGPT) 10L, Alkaline Phosphatase 147H, Total Protein 6.3L, Albumin 1.9L, Globulin 4.4, Albumin/Globulin Ratio 0.4L, Free Thyroxine 1.29 Height (Feet): 5 Height (Inches): 10.00 Weight (Pounds): 150 Objective GENERAL: Alert, awake, and oriented. HEENT: PERRLA. NECK: Range of motion is full in all directions. No tenderness to paracervical muscles. No adenopathy. LUNGS: Decreased breath sounds bilaterally. HEART: Regular. ABDOMEN: Distended with tenderness to palpation. BACK: Range of motion is decreased in flexion and extension with well-healed surgical scar noted in the midline of the lumbar spine. EXTREMITIES: No cyanosis. No clubbing. NEURO: No changes. THELMA SLADE Feb 10, 2017 08:23
--- NOTE | 2017-02-10 09:22 | Nephrology Progress Note ---
Assessment/Plan Problem List: (1) Liver cirrhosis (2) Alcoholic cirrhosis (3) Alcoholic pancreatitis (4) Hypothyroidism Assessment No renal issues- BP and UA and renal parameters OK Alcoholic liver disease and Cirrhosis with Ascitis Pancreatitis Anemia hypoThyroidism Plan Per GI- DC IV fluid Monitor renal parameters Anemia chen midodrine for low bp Subjective ROS Limited/Unobtainable: No Constitutional: Reports: malaise Objective Objective Last 24 Hour Vital Signs Date Time Temp Pulse Resp B/P (MAP) Pulse Ox O2 Delivery O2 Flow Rate FiO2 02/10/17 08:00 97.8 102 18 109/70 95 Room Air 02/10/17 04:00 98.2 94 20 94/63 95 Room Air 02/10/17 03:40 74 02/10/17 00:00 98.1 93 20 98/63 97 Room Air 02/09/17 23:34 87 02/09/17 20:16 Room Air 02/09/17 20:16 96 Room Air 21 02/09/17 20:00 98.1 85 18 112/69 95 Room Air 02/09/17 19:53 72 02/09/17 16:00 85 02/09/17 16:00 97.1 87 19 103/63 95 Room Air 02/09/17 12:00 97.7 83 20 102/66 95 Room Air 02/09/17 12:00 88 Laboratory Tests 02/09/17 17:05: Urine Random Sodium 17L 02/10/17 04:30: Stool Occult Blood [Pending] 02/10/17 07:10: White Blood Count 4.9, Red Blood Count 2.97L, Hemoglobin 11.1L, Hematocrit 31.8L , Mean Corpuscular Volume 107H, Mean Corpuscular Hemoglobin 37.5H, Mean Corpuscular Hemoglobin Concent 35.0, Red Cell Distribution Width 14.7, Platelet Count 102L, Mean Platelet Volume 6.4L, Neutrophils (%) (Auto) 52.3, Lymphocytes (%) (Auto) 29.8, Monocytes (%) (Auto) 13.8H, Eosinophils (%) (Auto) 2.6, Basophils (%) (Auto) 1.5, Sodium Level 134L, Potassium Level 3.6, Chloride Level 100, Carbon Dioxide Level 29, Anion Gap 5, Blood Urea Nitrogen 4L, Creatinine 0.7, Estimat Glomerular Filtration Rate > 60, Glucose Level 90, Calcium Level 8.2L, Total Bilirubin 0.8, Aspartate Amino Transf (AST/SGOT) 26, Alanine Aminotransferase (ALT/SGPT) 10L, Alkaline Phosphatase 147H, Total Protein 6.3L, Albumin 1.9L, Globulin 4.4, Albumin/Globulin Ratio 0.4L, Free Thyroxine 1.29 Height (Feet): 5 Height (Inches): 10.00 Weight (Pounds): 150 General Appearance: no apparent distress Respiratory/Chest: decreased breath sounds Abdomen: distended HOLDEN GILMORE Feb 10, 2017 09:22
--- NOTE | 2017-02-10 10:39 | Infectious Diseases Prog Note ---
Assessment/Plan Assessment/Plan A: Alcoholic cirrhosis Pancreatitis Ascites Anemia Hypothyroidism P; May discontinue Levaquin Will f/u cultures Subjective ROS Limited/Unobtainable: No Constitutional: Reports: no symptoms Respiratory: Reports: no symptoms Cardiovascular: Reports: no symptoms Gastrointestinal/Abdominal: Reports: other - distention Genitourinary: Reports: no symptoms Neurologic: Reports: no symptoms Allergies: Coded Allergies: PENICILLINS (Verified Allergy, Unknown, 02/07/17) Objective Vital Signs Last 24 Hour Vital Signs Date Time Temp Pulse Resp B/P (MAP) Pulse Ox O2 Delivery O2 Flow Rate FiO2 02/10/17 08:00 97.8 102 18 109/70 95 Room Air 02/10/17 04:00 98.2 94 20 94/63 95 Room Air 02/10/17 03:40 74 02/10/17 00:00 98.1 93 20 98/63 97 Room Air 02/09/17 23:34 87 02/09/17 20:16 Room Air 02/09/17 20:16 96 Room Air 21 02/09/17 20:00 98.1 85 18 112/69 95 Room Air 02/09/17 19:53 72 02/09/17 16:00 85 02/09/17 16:00 97.1 87 19 103/63 95 Room Air 02/09/17 12:00 97.7 83 20 102/66 95 Room Air 02/09/17 12:00 88 Height (Feet): 5 Height (Inches): 10.00 Weight (Pounds): 150 General Appearance: no acute distress HEENT: mucous membranes moist Respiratory/Chest: lungs clear Cardiovascular: normal rate Abdomen: other - distended with ascites Extremities: no edema Neurologic/Psychiatric: alert, oriented x 3, responsive Microbiology Date/Time Source Procedure Growth Status 02/08/17 11:45 Ascities Fluid Gram Stain - Final Resulted 02/08/17 11:45 Ascities Fluid Body Fluid Culture - Preliminary NO GROWTH AFTER 48 HOURS Resulted 02/07/17 16:10 Nasal Nares MRSA Culture - Final NO METHICILLIN RESISTANT STAPH AUREUS... Complete 02/07/17 16:10 Rectum VRE Culture - Final NO VANCOMYCIN RESISTANT ENTEROCOCCUS ... Complete Laboratory Tests Test 02/09/17 17:05 02/10/17 04:30 02/10/17 07:10 Urine Random Sodium 17 MEQ/L (20-110) L Stool Occult Blood Pending White Blood Count 4.9 K/UL (4.8-10.8) Red Blood Count 2.97 M/UL (4.70-6.10) L Hemoglobin 11.1 G/DL (14.2-18.0) L Hematocrit 31.8 % (42.0-52.0) L Mean Corpuscular Volume 107 FL (80-99) H Mean Corpuscular Hemoglobin 37.5 PG (27.0-31.0) H Mean Corpuscular Hemoglobin Concent 35.0 G/DL (32.0-36.0) Red Cell Distribution Width 14.7 % (11.6-14.8) Platelet Count 102 K/UL (150-450) L Mean Platelet Volume 6.4 FL (6.5-10.1) L Neutrophils (%) (Auto) 52.3 % (45.0-75.0) Lymphocytes (%) (Auto) 29.8 % (20.0-45.0) Monocytes (%) (Auto) 13.8 % (1.0-10.0) H Eosinophils (%) (Auto) 2.6 % (0.0-3.0) Basophils (%) (Auto) 1.5 % (0.0-2.0) Sodium Level 134 MMOL/L (136-145) L Potassium Level 3.6 MMOL/L (3.5-5.1) Chloride Level 100 MMOL/L (98-107) Carbon Dioxide Level 29 MMOL/L (21-32) Anion Gap 5 mmol/L (5-15) Blood Urea Nitrogen 4 mg/dL (7-18) L Creatinine 0.7 MG/DL (0.55-1.30) Estimat Glomerular Filtration Rate > 60 mL/min (>60) Glucose Level 90 MG/DL (74-106) Calcium Level 8.2 MG/DL (8.5-10.1) L Total Bilirubin 0.8 MG/DL (0.2-1.0) Aspartate Amino Transf (AST/SGOT) 26 U/L (15-37) Alanine Aminotransferase (ALT/SGPT) 10 U/L (12-78) L Alkaline Phosphatase 147 U/L (46-116) H Total Protein 6.3 G/DL (6.4-8.2) L Albumin 1.9 G/DL (3.4-5.0) L Globulin 4.4 g/dL Albumin/Globulin Ratio 0.4 (1.0-2.7) L Free Thyroxine 1.29 NG/DL (0.76-1.46) Current Medications Medications (Trade) Dose Ordered Sig/Jodie Route PRN Reason Start Time Stop Time Status Last Admin Dose Admin Lansoprazole (Prevacid) 30 mg DAILY ORAL 02/08/17 09:00 03/10/17 08:59 02/10/17 08:17 Levofloxacin (Levaquin) 750 mg DAILY ORAL 02/08/17 10:30 02/15/17 10:29 02/10/17 08:17 Levothyroxine Sodium (Synthroid) 50 mcg DAILY@0630 ORAL 02/09/17 06:30 03/11/17 06:29 02/10/17 06:07 Midodrine (Pro-Amatine) 10 mg THREE TIMES A DAY ORAL 02/08/17 09:00 03/10/17 08:59 02/10/17 08:17 Oxycodone HCl (Roxicodone) 5 mg Q4H PRN ORAL severe pain 02/10/17 08:30 02/17/17 08:29 Thiamine HCl (Vitamin B1) 100 mg DAILY ORAL 02/09/17 09:00 03/11/17 08:59 02/10/17 08:17 NOHEMI CHAUDHRY Feb 10, 2017 10:39
[2017-02-10] MEDS ORDERED: Tubing IV Secondary IV ONE (10:52)
[2017-02-10 11:20] VITALS: BP 105/65
[2017-02-10] MEDS: oxyCODONE 5mg IR tab ORAL PRN ×3 (12:28→21:19)
--- NOTE | 2017-02-10 15:00 | Consultation ---
DATE OF CONSULTATION: 02/08/2017 HEMATOLOGY/ONCOLOGY CONSULTATION CONSULTING PHYSICIAN: Jonny Johnson M.D. REQUESTING PHYSICIAN: Gallito Acevedo M.D. REASON FOR CONSULTATION: Evaluation of thrombocytopenia and anemia. IDENTIFICATION DATA: Dear Dr. Acevedo: HISTORY OF PRESENT ILLNESS: The patient is a 56-year-old male with past medical history significant for liver cirrhosis several years. Has a history of drinking even during the day. The patient is noted to have severe pain, 12/27 . Pain management team was consulted for further evaluation and care. The patient noted to have decreased platelet count as well as anemia. Hematology service was consulted for explanation of liver cirrhosis. Past Surgical History Lumbar surgery. ALLERGIES: Penicillin. MEDICATIONS: Tylenol, Lasix, Synthroid, midodrine, multivitamin, neomycin, and spironolactone. SOCIAL HISTORY: History of drinking alcohol. IV drug abuse. Denies any smoking. REVIEW OF SYSTEMS: CONSTITUTIONAL: No fevers, chills, or night sweats. SKIN: No rashes, bumps, or itching. HEENT: No headache, hearing, or vision changes. BREASTS: No lumps, pain, or discharge. PULMONARY: No cough, sputum, or shortness of breath. GASTROINTESTINAL: No nausea, vomiting, or diarrhea. GENITOURINARY: No dysuria, frequency, or urgency. MUSCULOSKELETAL: No joint swelling, muscle pain, or trauma. PHYSICAL EXAMINATION: VITAL SIGNS: Reviewed. GENERAL: No acute distress. PULMONARY: Decreased breath sounds. CARDIOVASCULAR: Regular rate. No S3 or S4. ABDOMEN: Soft, nontender, and nondistended. EXTREMITIES: 1+ edema. LABORATORY DATA: INR 1.1. BUN and creatinine 0.7. Iron of 46, TIBC 255, ferritin of 291. AST of 38, ALT of 18, . TSH of 2.1. WBC of , hemoglobin 10.5, hematocrit 30, platelet count 130,000. ASSESSMENT AND RECOMMENDATIONS: 1. Thrombocytopenia secondary to underlying liver disease due to alcoholic liver cirrhosis, continue to closely monitor. 2. Hepatitis and HIV have been ordered. 3. 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 4. 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 Continue to closely monitor. 5. Anemia secondary to chronic disease. Elevated ferritin. 6. Abdominal pain, due to likely cirrhosis. 7. Ascites status post paracentesis, rule out . 8. The patient may need outpatient EGD to rule out esophageal varices. I appreciate the consultation. Jonny Johnson M.D. DR: JUDSON JOB#: [id number] CC:
[2017-02-10 16:00] VITALS: BP 106/70
[2017-02-10 20:04] VITALS: BP 104/68
--- NOTE | 2017-02-10 20:29 | General Progress Note ---
Assessment/Plan Problem List: (1) Liver cirrhosis ICD Codes: K74.60 - Unspecified cirrhosis of liver SNOMED: 50515930 (2) Alcoholic pancreatitis ICD Codes: K85.20 - Alcohol induced acute pancreatitis without necrosis or infection SNOMED: 442649383 (3) Alcoholic cirrhosis ICD Codes: K70.30 - Alcoholic cirrhosis of liver without ascites SNOMED: 772677774 (4) Hypothyroidism ICD Codes: E03.9 - Hypothyroidism, unspecified SNOMED: 19253255 Status: progressing Assessment/Plan afebrile abdominal pain improving ascites reviewed chart pancreatitis is improving diet per gi cirrhosis Subjective Gastrointestinal/Abdominal: Reports: abdominal pain Allergies: Coded Allergies: PENICILLINS (Verified Allergy, Unknown, 02/07/17) Objective Last 24 Hour Vital Signs Date Time Temp Pulse Resp B/P (MAP) Pulse Ox O2 Delivery O2 Flow Rate FiO2 02/10/17 20:04 98.2 83 18 104/68 93 Room Air 02/10/17 16:00 98.4 89 18 106/70 95 Room Air 02/10/17 16:00 79 02/10/17 12:00 88 02/10/17 11:20 98.2 98 18 105/65 95 Room Air 02/10/17 08:00 74 02/10/17 08:00 97.8 102 18 109/70 95 Room Air 02/10/17 04:00 98.2 94 20 94/63 95 Room Air 02/10/17 03:40 74 02/10/17 00:00 98.1 93 20 98/63 97 Room Air 02/09/17 23:34 87 Intake and Output 02/10/17 02/11/17 19:00 07:00 # Voids 3 Laboratory Tests 02/10/17 04:30: Stool Occult Blood Positive 02/10/17 07:10: White Blood Count 4.9, Red Blood Count 2.97L, Hemoglobin 11.1L, Hematocrit 31.8L , Mean Corpuscular Volume 107H, Mean Corpuscular Hemoglobin 37.5H, Mean Corpuscular Hemoglobin Concent 35.0, Red Cell Distribution Width 14.7, Platelet Count 102L, Mean Platelet Volume 6.4L, Neutrophils (%) (Auto) 52.3, Lymphocytes (%) (Auto) 29.8, Monocytes (%) (Auto) 13.8H, Eosinophils (%) (Auto) 2.6, Basophils (%) (Auto) 1.5, Sodium Level 134L, Potassium Level 3.6, Chloride Level 100, Carbon Dioxide Level 29, Anion Gap 5, Blood Urea Nitrogen 4L, Creatinine 0.7, Estimat Glomerular Filtration Rate > 60, Glucose Level 90, Calcium Level 8.2L, Total Bilirubin 0.8, Aspartate Amino Transf (AST/SGOT) 26, Alanine Aminotransferase (ALT/SGPT) 10L, Alkaline Phosphatase 147H, Total Protein 6.3L, Albumin 1.9L, Globulin 4.4, Albumin/Globulin Ratio 0.4L, Free Thyroxine 1.29 Height (Feet): 5 Height (Inches): 10.00 Weight (Pounds): 150 Gallito Acevedo MD Feb 10, 2017 20:29
[2017-02-11] VITALS (7 sets, daily range): BP systolic 94–126; BP diastolic 57–72
[2017-02-11] MEDS: oxyCODONE 5mg IR tab ORAL PRN ×4 (06:53→20:00)
--- NOTE | 2017-02-11 07:57 | General Progress Note ---
Assessment/Plan Problem List: (1) ETOH abuse ICD Codes: F10.10 - Alcohol abuse, uncomplicated SNOMED: 56138339 (2) Hypothyroidism ICD Codes: E03.9 - Hypothyroidism, unspecified SNOMED: 25089048 (3) Alcoholic cirrhosis ICD Codes: K70.30 - Alcoholic cirrhosis of liver without ascites SNOMED: 254911663 Assessment/Plan on cardiac diet tolerating diet normal lipase positive stool ob but stable H&H>> hold GI procedures for now patient to fu as out patient for EGD repeat paracentesis Subjective ROS Limited/Unobtainable: Yes Allergies: Coded Allergies: PENICILLINS (Verified Allergy, Unknown, 02/07/17) Subjective no event Objective Last 24 Hour Vital Signs Date Time Temp Pulse Resp B/P (MAP) Pulse Ox O2 Delivery O2 Flow Rate FiO2 02/11/17 06:59 103 99/71 02/11/17 04:00 78 02/11/17 04:00 97.9 95 94/57 96 Room Air 02/11/17 00:14 94.6 78 18 126/60 94 Room Air 02/11/17 00:00 84 02/10/17 20:04 98.2 83 18 104/68 93 Room Air 02/10/17 20:00 85 02/10/17 16:00 98.4 89 18 106/70 95 Room Air 02/10/17 16:00 79 02/10/17 12:00 88 02/10/17 11:20 98.2 98 18 105/65 95 Room Air 02/10/17 08:00 74 02/10/17 08:00 97.8 102 18 109/70 95 Room Air Height (Feet): 5 Height (Inches): 10.00 Weight (Pounds): 150 General Appearance: no apparent distress EENT: normal ENT inspection Neck: supple Cardiovascular: normal rate Respiratory/Chest: decreased breath sounds Abdomen: non tender, soft, distended Extremities: non-tender MELBA BURNETT Feb 11, 2017 07:57
[2017-02-11 08:18] LABS: BASOPHILS % (AUTO) 1.7 % (0.0-2.0); EOSINOPHILS % (AUTO) 2.4 % (0.0-3.0); MEAN CORPUSCULAR HEMOGLOBIN 36.4 PG (27.0-31.0); MEAN CORPUSCULAR HGB CONC 33.8 G/DL (32.0-36.0); MEAN CORPUSCULAR VOLUME 108 FL (80-99); MEAN PLATELET VOLUME 6.4 FL (6.5-10.1); MONOCYTES % (AUTO) 14.6 % (1.0-10.0); NEUTROPHILS % (AUTO) 49.3 % (45.0-75.0); PLATELET COUNT 110 K/UL (150-450); RED BLOOD COUNT 3.17 M/UL (4.70-6.10); RED CELL DISTRIBUTION WIDTH 14.7 % (11.6-14.8); WHITE BLOOD COUNT 4.7 K/UL (4.8-10.8)
[2017-02-11 08:44] LABS: ANION GAP 6 mmol/L (5-15); CALCIUM 8.3 MG/DL (8.5-10.1); CARBON DIOXIDE 29 MMOL/L (21-32); CHLORIDE 100 MMOL/L (98-107); CREATININE 0.7 MG/DL (0.55-1.30); GLOMERULAR FILTRATION RATE > 60 mL/min (>60); POTASSIUM 3.9 MMOL/L (3.5-5.1); SODIUM 135 MMOL/L (136-145)
[2017-02-11] MEDS: Midodrine 10mg tab ORAL SCH ×3 (08:44→17:01)
[2017-02-11] MEDS: Thiamine 100mg tab ORAL SCH (08:44)
--- NOTE | 2017-02-11 09:22 | Nephrology Progress Note ---
Assessment/Plan Problem List: (1) Liver cirrhosis (2) Alcoholic cirrhosis (3) Alcoholic pancreatitis (4) Hypothyroidism Assessment No renal issues- BP and UA and renal parameters OK Alcoholic liver disease and Cirrhosis with Ascitis Pancreatitis Anemia hypoThyroidism Plan Per GI- DC IV fluid Monitor renal parameters Anemia chen midodrine for low bp Subjective ROS Limited/Unobtainable: No Constitutional: Reports: malaise Objective Objective Last 24 Hour Vital Signs Date Time Temp Pulse Resp B/P (MAP) Pulse Ox O2 Delivery O2 Flow Rate FiO2 02/11/17 08:00 98.1 96 98/65 96 Room Air 02/11/17 06:59 103 99/71 02/11/17 04:00 78 02/11/17 04:00 97.9 95 94/57 96 Room Air 02/11/17 00:14 94.6 78 18 126/60 94 Room Air 02/11/17 00:00 84 02/10/17 20:04 98.2 83 18 104/68 93 Room Air 02/10/17 20:00 85 02/10/17 16:00 98.4 89 18 106/70 95 Room Air 02/10/17 16:00 79 02/10/17 12:00 88 02/10/17 11:20 98.2 98 18 105/65 95 Room Air Laboratory Tests 02/11/17 06:45: White Blood Count 4.7L, Red Blood Count 3.17L, Hemoglobin 11.5L, Hematocrit 34.2L, Mean Corpuscular Volume 108H, Mean Corpuscular Hemoglobin 36.4H, Mean Corpuscular Hemoglobin Concent 33.8, Red Cell Distribution Width 14.7, Platelet Count 110L, Mean Platelet Volume 6.4L, Neutrophils (%) (Auto) 49.3, Lymphocytes (%) (Auto) 32.0, Monocytes (%) (Auto) 14.6H, Eosinophils (%) (Auto) 2.4, Basophils (%) (Auto) 1.7, Sodium Level 135L, Potassium Level 3.9, Chloride Level 100, Carbon Dioxide Level 29, Anion Gap 6, Blood Urea Nitrogen 6L, Creatinine 0.7, Estimat Glomerular Filtration Rate > 60, Glucose Level 97, Calcium Level 8.3L Height (Feet): 5 Height (Inches): 10.00 Weight (Pounds): 150 General Appearance: no apparent distress Respiratory/Chest: decreased breath sounds Abdomen: soft, distended HOLDEN GILMORE Feb 11, 2017 09:22
--- NOTE | 2017-02-11 14:26 | General Progress Note ---
Assessment/Plan Assessment/Plan ASSESSMENT AND RECOMMENDATIONS: 1. Thrombocytopenia secondary to underlying liver disease due to alcoholic liver cirrhosis, continue to closely monitor. 2. Positive occult blood. Rule out GI bleed. 3. 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 4. 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 Continue to closely monitor. 5. Anemia secondary to chronic disease. Elevated ferritin. 6. Abdominal pain, due to likely cirrhosis. 7. Ascites status post paracentesis Subjective Allergies: Coded Allergies: PENICILLINS (Verified Allergy, Unknown, 02/07/17) All Systems: reviewed and negative except above Subjective NAD Objective Last 24 Hour Vital Signs Date Time Temp Pulse Resp B/P (MAP) Pulse Ox O2 Delivery O2 Flow Rate FiO2 02/11/17 12:00 88 02/11/17 11:12 98.2 80 104/72 96 Room Air 02/11/17 08:00 85 02/11/17 08:00 98.1 96 98/65 96 Room Air 02/11/17 06:59 103 99/71 02/11/17 04:00 78 02/11/17 04:00 97.9 95 94/57 96 Room Air 02/11/17 00:14 94.6 78 18 126/60 94 Room Air 02/11/17 00:00 84 02/10/17 20:04 98.2 83 18 104/68 93 Room Air 02/10/17 20:00 85 02/10/17 16:00 98.4 89 18 106/70 95 Room Air 02/10/17 16:00 79 Laboratory Tests 02/11/17 06:45: White Blood Count 4.7L, Red Blood Count 3.17L, Hemoglobin 11.5L, Hematocrit 34.2L, Mean Corpuscular Volume 108H, Mean Corpuscular Hemoglobin 36.4H, Mean Corpuscular Hemoglobin Concent 33.8, Red Cell Distribution Width 14.7, Platelet Count 110L, Mean Platelet Volume 6.4L, Neutrophils (%) (Auto) 49.3, Lymphocytes (%) (Auto) 32.0, Monocytes (%) (Auto) 14.6H, Eosinophils (%) (Auto) 2.4, Basophils (%) (Auto) 1.7, Sodium Level 135L, Potassium Level 3.9, Chloride Level 100, Carbon Dioxide Level 29, Anion Gap 6, Blood Urea Nitrogen 6L, Creatinine 0.7, Estimat Glomerular Filtration Rate > 60, Glucose Level 97, Calcium Level 8.3L Height (Feet): 5 Height (Inches): 10.00 Weight (Pounds): 150 General Appearance: no apparent distress EENT: normal ENT inspection Neck: normal alignment Cardiovascular: normal peripheral pulses Extremities: non-tender Skin: normal pigmentation Jonny Johnson Feb 11, 2017 14:26
--- NOTE | 2017-02-11 22:52 | General Progress Note ---
Assessment/Plan Problem List: (1) Liver cirrhosis ICD Codes: K74.60 - Unspecified cirrhosis of liver SNOMED: 93487587 (2) Alcoholic pancreatitis ICD Codes: K85.20 - Alcohol induced acute pancreatitis without necrosis or infection SNOMED: 635632531 (3) Alcoholic cirrhosis ICD Codes: K70.30 - Alcoholic cirrhosis of liver without ascites SNOMED: 009430757 (4) Hypothyroidism ICD Codes: E03.9 - Hypothyroidism, unspecified SNOMED: 39581839 Status: progressing Assessment/Plan no acute eventes diet per gi no gi bleeding reviewed chart pancreatitis is improving cirrhosis Subjective ROS Limited/Unobtainable: Yes Allergies: Coded Allergies: PENICILLINS (Verified Allergy, Unknown, 02/07/17) Objective Last 24 Hour Vital Signs Date Time Temp Pulse Resp B/P (MAP) Pulse Ox O2 Delivery O2 Flow Rate FiO2 02/11/17 20:00 97.0 86 20 98/63 98 Room Air 02/11/17 16:00 83 02/11/17 15:20 98.1 79 18 104/65 96 Room Air 02/11/17 12:00 88 02/11/17 11:12 98.2 80 15 104/72 96 Room Air 02/11/17 08:00 85 02/11/17 08:00 98.1 96 18 98/65 96 Room Air 02/11/17 06:59 103 99/71 02/11/17 04:00 78 02/11/17 04:00 97.9 95 94/57 96 Room Air 02/11/17 00:14 94.6 78 18 126/60 94 Room Air 02/11/17 00:00 84 Intake and Output 02/11/17 02/12/17 19:00 07:00 Intake Total 1400 ml Output Total 1200 ml Balance 200 ml Intake Oral 1400 ml Output Urine Total 1200 ml # Voids 3 # Bowel Movements 1 Laboratory Tests 02/11/17 06:45: White Blood Count 4.7L, Red Blood Count 3.17L, Hemoglobin 11.5L, Hematocrit 34.2L, Mean Corpuscular Volume 108H, Mean Corpuscular Hemoglobin 36.4H, Mean Corpuscular Hemoglobin Concent 33.8, Red Cell Distribution Width 14.7, Platelet Count 110L, Mean Platelet Volume 6.4L, Neutrophils (%) (Auto) 49.3, Lymphocytes (%) (Auto) 32.0, Monocytes (%) (Auto) 14.6H, Eosinophils (%) (Auto) 2.4, Basophils (%) (Auto) 1.7, Sodium Level 135L, Potassium Level 3.9, Chloride Level 100, Carbon Dioxide Level 29, Anion Gap 6, Blood Urea Nitrogen 6L, Creatinine 0.7, Estimat Glomerular Filtration Rate > 60, Glucose Level 97, Calcium Level 8.3L Height (Feet): 5 Height (Inches): 10.00 Weight (Pounds): 150 Gallito Acevedo MD Feb 11, 2017 22:52
[2017-02-12] VITALS: BP 100/65
[2017-02-12 04:03] VITALS: BP 91/59
[2017-02-12] MEDS: oxyCODONE 5mg IR tab ORAL PRN ×5 (05:35→21:49)
[2017-02-12 06:32] LABS: BASOPHILS % (AUTO) 1.6 % (0.0-2.0); EOSINOPHILS % (AUTO) 2.6 % (0.0-3.0); LYMPHOCYTES % (AUTO) 40.1 % (20.0-45.0); MEAN CORPUSCULAR HEMOGLOBIN 36.4 PG (27.0-31.0); MEAN CORPUSCULAR VOLUME 107 FL (80-99); MEAN PLATELET VOLUME 5.9 FL (6.5-10.1); MONOCYTES % (AUTO) 15.5 % (1.0-10.0); NEUTROPHILS % (AUTO) 40.2 % (45.0-75.0); PLATELET COUNT 107 K/UL (150-450); RED BLOOD COUNT 3.03 M/UL (4.70-6.10); WHITE BLOOD COUNT 4.5 K/UL (4.8-10.8)
--- NOTE | 2017-02-12 07:28 | General Progress Note ---
Assessment/Plan Problem List: (1) ETOH abuse ICD Codes: F10.10 - Alcohol abuse, uncomplicated SNOMED: 73582237 (2) Hypothyroidism ICD Codes: E03.9 - Hypothyroidism, unspecified SNOMED: 95805658 (3) Alcoholic cirrhosis ICD Codes: K70.30 - Alcoholic cirrhosis of liver without ascites SNOMED: 283895024 Assessment/Plan on cardiac diet tolerating diet normal lipase positive stool ob but stable H&H>> hold GI procedures for now patient to fu as out patient for EGD repeat paracentesis tomorrow Subjective ROS Limited/Unobtainable: Yes Allergies: Coded Allergies: PENICILLINS (Verified Allergy, Unknown, 02/07/17) Subjective no event c/o abd pain and distention Objective Last 24 Hour Vital Signs Date Time Temp Pulse Resp B/P (MAP) Pulse Ox O2 Delivery O2 Flow Rate FiO2 02/12/17 04:03 98.1 88 20 91/59 95 Room Air 2.0 21 02/12/17 04:00 71 02/12/17 00:00 83 02/12/17 00:00 97.3 82 18 100/65 97 Room Air 02/11/17 20:00 80 02/11/17 20:00 97.0 86 20 98/63 98 Room Air 02/11/17 16:00 83 02/11/17 15:20 98.1 79 18 104/65 96 Room Air 02/11/17 12:00 88 02/11/17 11:12 98.2 80 15 104/72 96 Room Air 02/11/17 08:00 85 02/11/17 08:00 98.1 96 18 98/65 96 Room Air Laboratory Tests 02/12/17 04:37: White Blood Count 4.5L, Red Blood Count 3.03L, Hemoglobin 11.0L, Hematocrit 32.4L, Mean Corpuscular Volume 107H, Mean Corpuscular Hemoglobin 36.4H, Mean Corpuscular Hemoglobin Concent 34.0, Red Cell Distribution Width 15.0H, Platelet Count 107L, Mean Platelet Volume 5.9L, Neutrophils (%) (Auto) 40.2L, Lymphocytes (%) (Auto) 40.1, Monocytes (%) (Auto) 15.5H, Eosinophils (%) (Auto) 2.6, Basophils (%) (Auto) 1.6 Height (Feet): 5 Height (Inches): 10.00 Weight (Pounds): 150 General Appearance: alert EENT: normal ENT inspection Neck: supple Cardiovascular: normal rate Respiratory/Chest: decreased breath sounds Abdomen: normal bowel sounds, non tender, soft Extremities: non-tender MELBA BURNETT Feb 12, 2017 07:28
[2017-02-12] MEDS: Thiamine 100mg tab ORAL SCH (08:46)
[2017-02-12] MEDS: Midodrine 10mg tab ORAL SCH ×3 (08:46→17:26)
[2017-02-12 08:53] VITALS: BP 97/66
--- NOTE | 2017-02-12 08:53 | Infectious Diseases Prog Note ---
Assessment/Plan Assessment/Plan A: Alcoholic cirrhosis Pancreatitis Ascites Anemia Hypothyroidism P; Observe off antibiotic Will have paracentesis again Subjective ROS Limited/Unobtainable: No Constitutional: Reports: no symptoms Respiratory: Reports: dry cough Cardiovascular: Reports: no symptoms Gastrointestinal/Abdominal: Reports: other - abdominal distention Genitourinary: Reports: no symptoms Allergies: Coded Allergies: PENICILLINS (Verified Allergy, Unknown, 02/07/17) Objective Vital Signs Last 24 Hour Vital Signs Date Time Temp Pulse Resp B/P (MAP) Pulse Ox O2 Delivery O2 Flow Rate FiO2 02/12/17 04:03 98.1 88 20 91/59 95 Room Air 2.0 21 02/12/17 04:00 71 02/12/17 00:00 83 02/12/17 00:00 97.3 82 18 100/65 97 Room Air 02/11/17 20:00 80 02/11/17 20:00 97.0 86 20 98/63 98 Room Air 02/11/17 16:00 83 02/11/17 15:20 98.1 79 18 104/65 96 Room Air 02/11/17 12:00 88 02/11/17 11:12 98.2 80 15 104/72 96 Room Air Height (Feet): 5 Height (Inches): 10.00 Weight (Pounds): 150 General Appearance: no acute distress HEENT: mucous membranes moist Respiratory/Chest: lungs clear Cardiovascular: normal rate Abdomen: distended, other - ascites Extremities: no edema Neurologic/Psychiatric: alert, oriented x 3, responsive Laboratory Tests Test 02/12/17 04:37 White Blood Count 4.5 K/UL (4.8-10.8) L Red Blood Count 3.03 M/UL (4.70-6.10) L Hemoglobin 11.0 G/DL (14.2-18.0) L Hematocrit 32.4 % (42.0-52.0) L Mean Corpuscular Volume 107 FL (80-99) H Mean Corpuscular Hemoglobin 36.4 PG (27.0-31.0) H Mean Corpuscular Hemoglobin Concent 34.0 G/DL (32.0-36.0) Red Cell Distribution Width 15.0 % (11.6-14.8) H Platelet Count 107 K/UL (150-450) L Mean Platelet Volume 5.9 FL (6.5-10.1) L Neutrophils (%) (Auto) 40.2 % (45.0-75.0) L Lymphocytes (%) (Auto) 40.1 % (20.0-45.0) Monocytes (%) (Auto) 15.5 % (1.0-10.0) H Eosinophils (%) (Auto) 2.6 % (0.0-3.0) Basophils (%) (Auto) 1.6 % (0.0-2.0) Current Medications Medications (Trade) Dose Ordered Sig/Jodie Route PRN Reason Start Time Stop Time Status Last Admin Dose Admin Lansoprazole (Prevacid) 30 mg DAILY ORAL 02/08/17 09:00 03/10/17 08:59 02/12/17 08:46 Levothyroxine Sodium (Synthroid) 50 mcg DAILY@0630 ORAL 02/09/17 06:30 03/11/17 06:29 02/12/17 05:35 Midodrine (Pro-Amatine) 10 mg THREE TIMES A DAY ORAL 02/08/17 09:00 03/10/17 08:59 02/12/17 08:46 Oxycodone HCl (Roxicodone) 5 mg Q4H PRN ORAL severe pain 02/10/17 08:30 02/17/17 08:29 02/12/17 08:46 Thiamine HCl (Vitamin B1) 100 mg DAILY ORAL 02/09/17 09:00 03/11/17 08:59 02/12/17 08:46 NOHEMI CHAUDHRY Feb 12, 2017 08:53
--- NOTE | 2017-02-12 09:37 | General Progress Note ---
Assessment/Plan Assessment/Plan (1) Intractable abdominal pain (2) Liver cirrhosis (3) Pancreatitis Pt will be continued on Oxycodone. D/w Dr. Mcadams and he concurred. Subjective Date patient seen: Feb 12, 2017 Time patient seen: 07:15 - am Allergies: Coded Allergies: PENICILLINS (Verified Allergy, Unknown, 02/07/17) Subjective REVIEW OF SYSTEMS: Denies rash, fever, chills, sweating, dizziness, drowsiness, blurred vision, sore throat, or change in weight. No shortness of breath or chest pain. No nausea, vomiting, diarrhea, or blood in the stool or urine. No bowel or bladder incontinence. No dysuria. He is complaining of abdominal pain. SUBJECTIVE: Patient reports that his pain has been well controlled and tolerated on the Oxycodone. It reduces his pain to a moderate level. Objective Last 24 Hour Vital Signs Date Time Temp Pulse Resp B/P (MAP) Pulse Ox O2 Delivery O2 Flow Rate FiO2 02/12/17 08:53 97.9 93 20 97/66 93 Room Air 02/12/17 04:03 98.1 88 20 91/59 95 Room Air 2.0 21 02/12/17 04:00 71 02/12/17 00:00 83 02/12/17 00:00 97.3 82 18 100/65 97 Room Air 02/11/17 20:00 80 02/11/17 20:00 97.0 86 20 98/63 98 Room Air 02/11/17 16:00 83 02/11/17 15:20 98.1 79 18 104/65 96 Room Air 02/11/17 12:00 88 02/11/17 11:12 98.2 80 15 104/72 96 Room Air Laboratory Tests 02/12/17 04:37: White Blood Count 4.5L, Red Blood Count 3.03L, Hemoglobin 11.0L, Hematocrit 32.4L, Mean Corpuscular Volume 107H, Mean Corpuscular Hemoglobin 36.4H, Mean Corpuscular Hemoglobin Concent 34.0, Red Cell Distribution Width 15.0H, Platelet Count 107L, Mean Platelet Volume 5.9L, Neutrophils (%) (Auto) 40.2L, Lymphocytes (%) (Auto) 40.1, Monocytes (%) (Auto) 15.5H, Eosinophils (%) (Auto) 2.6, Basophils (%) (Auto) 1.6 Height (Feet): 5 Height (Inches): 10.00 Weight (Pounds): 150 Objective GENERAL: Alert, awake, and oriented. HEENT: PERRLA. NECK: Range of motion is full in all directions. No tenderness to paracervical muscles. No adenopathy. LUNGS: Decreased breath sounds bilaterally. HEART: Regular. ABDOMEN: tenderness to palpation. BACK: Range of motion is decreased in flexion and extension with well-healed surgical scar noted in the midline of the lumbar spine. EXTREMITIES: No cyanosis. No clubbing. NEURO: No changes. THELMA SLADE Feb 12, 2017 09:37
--- NOTE | 2017-02-12 10:34 | Nephrology Progress Note ---
Assessment/Plan Problem List: (1) Liver cirrhosis (2) Alcoholic cirrhosis (3) Alcoholic pancreatitis (4) Hypothyroidism Assessment No renal issues- BP and UA and renal parameters OK Alcoholic liver disease and Cirrhosis with Ascitis Pancreatitis Anemia hypoThyroidism Plan Per GI- DC IV fluid Monitor renal parameters Anemia chen midodrine for low bp to med surg Subjective ROS Limited/Unobtainable: No Constitutional: Reports: malaise Objective Objective Last 24 Hour Vital Signs Date Time Temp Pulse Resp B/P (MAP) Pulse Ox O2 Delivery O2 Flow Rate FiO2 02/12/17 08:53 97.9 93 20 97/66 93 Room Air 02/12/17 08:00 105 02/12/17 04:03 98.1 88 20 91/59 95 Room Air 2.0 21 02/12/17 04:00 71 02/12/17 00:00 83 02/12/17 00:00 97.3 82 18 100/65 97 Room Air 02/11/17 20:00 80 02/11/17 20:00 97.0 86 20 98/63 98 Room Air 02/11/17 16:00 83 02/11/17 15:20 98.1 79 18 104/65 96 Room Air 02/11/17 12:00 88 02/11/17 11:12 98.2 80 15 104/72 96 Room Air Laboratory Tests 02/12/17 04:37: White Blood Count 4.5L, Red Blood Count 3.03L, Hemoglobin 11.0L, Hematocrit 32.4L, Mean Corpuscular Volume 107H, Mean Corpuscular Hemoglobin 36.4H, Mean Corpuscular Hemoglobin Concent 34.0, Red Cell Distribution Width 15.0H, Platelet Count 107L, Mean Platelet Volume 5.9L, Neutrophils (%) (Auto) 40.2L, Lymphocytes (%) (Auto) 40.1, Monocytes (%) (Auto) 15.5H, Eosinophils (%) (Auto) 2.6, Basophils (%) (Auto) 1.6 Height (Feet): 5 Height (Inches): 10.00 Weight (Pounds): 150 General Appearance: no apparent distress Objective no change HOLDEN GILMORE Feb 12, 2017 10:34
[2017-02-12 12:41] VITALS: BP 105/73
[2017-02-12 16:48] VITALS: BP 97/64
[2017-02-12 20:10] VITALS: BP 101/67
--- NOTE | 2017-02-12 20:49 | General Progress Note ---
Assessment/Plan Assessment/Plan ASSESSMENT AND RECOMMENDATIONS: 1. Thrombocytopenia secondary to underlying liver disease due to alcoholic liver cirrhosis, continue to closely monitor. 2. Positive occult blood. Rule out GI bleed. --> H&H currently stable, GI procedures on hold. 3. 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 4. 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 Continue to closely monitor. 5. Anemia secondary to chronic disease. Elevated ferritin. 6. Abdominal pain, due to likely cirrhosis. 7. Ascites status post paracentesis Subjective Allergies: Coded Allergies: PENICILLINS (Verified Allergy, Unknown, 02/07/17) All Systems: reviewed and negative except above Subjective NAD Objective Last 24 Hour Vital Signs Date Time Temp Pulse Resp B/P (MAP) Pulse Ox O2 Delivery O2 Flow Rate FiO2 02/12/17 20:10 98.4 72 20 101/67 98 Room Air 02/12/17 16:48 98.3 87 20 97/64 98 Room Air 02/12/17 12:41 97.9 80 20 105/73 98 Room Air 02/12/17 12:00 77 02/12/17 08:53 97.9 93 20 97/66 93 Room Air 02/12/17 08:00 105 02/12/17 04:03 98.1 88 20 91/59 95 Room Air 2.0 21 02/12/17 04:00 71 02/12/17 00:00 83 02/12/17 00:00 97.3 82 18 100/65 97 Room Air Intake and Output 02/12/17 02/13/17 19:00 07:00 Intake Total 1530 ml Balance 1530 ml Intake Oral 1530 ml # Voids 7 # Bowel Movements 3 Laboratory Tests 02/12/17 04:37: White Blood Count 4.5L, Red Blood Count 3.03L, Hemoglobin 11.0L, Hematocrit 32.4L, Mean Corpuscular Volume 107H, Mean Corpuscular Hemoglobin 36.4H, Mean Corpuscular Hemoglobin Concent 34.0, Red Cell Distribution Width 15.0H, Platelet Count 107L, Mean Platelet Volume 5.9L, Neutrophils (%) (Auto) 40.2L, Lymphocytes (%) (Auto) 40.1, Monocytes (%) (Auto) 15.5H, Eosinophils (%) (Auto) 2.6, Basophils (%) (Auto) 1.6 Height (Feet): 5 Height (Inches): 10.00 Weight (Pounds): 150 General Appearance: no apparent distress EENT: normal ENT inspection Cardiovascular: normal peripheral pulses Extremities: non-tender Skin: normal pigmentation Jonny Johnson Feb 12, 2017 20:49
--- NOTE | 2017-02-12 21:16 | General Progress Note ---
Assessment/Plan Problem List: (1) Liver cirrhosis ICD Codes: K74.60 - Unspecified cirrhosis of liver SNOMED: 12759223 (2) Alcoholic pancreatitis ICD Codes: K85.20 - Alcohol induced acute pancreatitis without necrosis or infection SNOMED: 480193032 (3) Alcoholic cirrhosis ICD Codes: K70.30 - Alcoholic cirrhosis of liver without ascites SNOMED: 610809943 (4) Hypothyroidism ICD Codes: E03.9 - Hypothyroidism, unspecified SNOMED: 55603352 Status: progressing Assessment/Plan reviewed chart and labs and meds afebrile reviewed chart pancreatitis is improving cirrhosis Subjective ROS Limited/Unobtainable: Yes Allergies: Coded Allergies: PENICILLINS (Verified Allergy, Unknown, 02/07/17) Objective Last 24 Hour Vital Signs Date Time Temp Pulse Resp B/P (MAP) Pulse Ox O2 Delivery O2 Flow Rate FiO2 02/12/17 20:10 98.4 72 20 101/67 98 Room Air 02/12/17 16:48 98.3 87 20 97/64 98 Room Air 02/12/17 12:41 97.9 80 20 105/73 98 Room Air 02/12/17 12:00 77 02/12/17 08:53 97.9 93 20 97/66 93 Room Air 02/12/17 08:00 105 02/12/17 04:03 98.1 88 20 91/59 95 Room Air 2.0 21 02/12/17 04:00 71 02/12/17 00:00 83 02/12/17 00:00 97.3 82 18 100/65 97 Room Air Intake and Output 02/12/17 02/13/17 19:00 07:00 Intake Total 1530 ml Balance 1530 ml Intake Oral 1530 ml # Voids 7 # Bowel Movements 3 Laboratory Tests 02/12/17 04:37: White Blood Count 4.5L, Red Blood Count 3.03L, Hemoglobin 11.0L, Hematocrit 32.4L, Mean Corpuscular Volume 107H, Mean Corpuscular Hemoglobin 36.4H, Mean Corpuscular Hemoglobin Concent 34.0, Red Cell Distribution Width 15.0H, Platelet Count 107L, Mean Platelet Volume 5.9L, Neutrophils (%) (Auto) 40.2L, Lymphocytes (%) (Auto) 40.1, Monocytes (%) (Auto) 15.5H, Eosinophils (%) (Auto) 2.6, Basophils (%) (Auto) 1.6 Height (Feet): 5 Height (Inches): 10.00 Weight (Pounds): 150 Gallito Acevedo MD Feb 12, 2017 21:16
[2017-02-13 00:41] VITALS: BP 103/65
[2017-02-13 04:00] VITALS: BP 100/67
[2017-02-13] MEDS: oxyCODONE 5mg IR tab ORAL PRN ×4 (04:54→13:41)
[2017-02-13 08:13] VITALS: BP 95/62
[2017-02-13] MEDS: Midodrine 10mg tab ORAL SCH ×2 (08:45→13:41)
[2017-02-13] MEDS: Thiamine 100mg tab ORAL SCH (08:45)
--- NOTE | 2017-02-13 10:20 | GI Progress Note ---
Assessment/Plan Problems: (1) Alcoholic pancreatitis ICD Codes: K85.20 - Alcohol induced acute pancreatitis without necrosis or infection SNOMED: 322571171 (2) Liver cirrhosis ICD Codes: K74.60 - Unspecified cirrhosis of liver SNOMED: 63551675 (3) ETOH abuse ICD Codes: F10.10 - Alcohol abuse, uncomplicated SNOMED: 40163198 Status: progressing Status Narrative Discussed with Dr. Maxwell. Assessment/Plan on cardiac diet tolerating diet normal lipase positive stool ob but stable H&H>> hold GI procedures for now patient to fu as out patient for EGD repeat paracentesis today PT eval dc planning Subjective Subjective abdominal tenderness s/p paracentesis feels better Objective Last 24 Hour Vital Signs Date Time Temp Pulse Resp B/P (MAP) Pulse Ox O2 Delivery O2 Flow Rate FiO2 02/13/17 08:13 97.7 77 20 95/62 98 02/13/17 04:00 97.9 89 18 100/67 94 Room Air 02/13/17 00:41 97.9 82 17 103/65 96 Room Air 02/12/17 20:10 98.4 72 20 101/67 98 Room Air 02/12/17 16:48 98.3 87 20 97/64 98 Room Air 02/12/17 12:41 97.9 80 20 105/73 98 Room Air 02/12/17 12:00 77 Height (Feet): 5 Height (Inches): 10.00 Weight (Pounds): 150 General Appearance: WD/WN, no apparent distress, alert Cardiovascular: normal rate Respiratory/Chest: normal breath sounds, no respiratory distress Abdominal Exam: normal bowel sounds, soft, tender, ascites Extremities: non-tender Elida Zavala N.P. Feb 13, 2017 10:20
--- NOTE | 2017-02-13 10:37 | Infectious Diseases Prog Note ---
Assessment/Plan Assessment/Plan A: Alcoholic cirrhosis Pancreatitis Ascites Anemia Hypothyroidism P; Observe off antibiotic Will have paracentesis again Subjective ROS Limited/Unobtainable: No Constitutional: Reports: no symptoms Respiratory: Reports: no symptoms Gastrointestinal/Abdominal: Reports: other - abdominal distention Genitourinary: Reports: no symptoms Allergies: Coded Allergies: PENICILLINS (Verified Allergy, Unknown, 02/07/17) Objective Vital Signs Last 24 Hour Vital Signs Date Time Temp Pulse Resp B/P (MAP) Pulse Ox O2 Delivery O2 Flow Rate FiO2 02/13/17 08:13 97.7 77 20 95/62 98 02/13/17 04:00 97.9 89 18 100/67 94 Room Air 02/13/17 00:41 97.9 82 17 103/65 96 Room Air 02/12/17 20:10 98.4 72 20 101/67 98 Room Air 02/12/17 16:48 98.3 87 20 97/64 98 Room Air 02/12/17 12:41 97.9 80 20 105/73 98 Room Air 02/12/17 12:00 77 Height (Feet): 5 Height (Inches): 10.00 Weight (Pounds): 150 General Appearance: no acute distress HEENT: mucous membranes moist Respiratory/Chest: lungs clear Cardiovascular: normal rate Abdomen: distended, other - ascites Extremities: no edema Skin: other - ulcer on nose, erythemaof right elbow Neurologic/Psychiatric: alert, oriented x 3, responsive Current Medications Medications (Trade) Dose Ordered Sig/Jodie Route PRN Reason Start Time Stop Time Status Last Admin Dose Admin Lansoprazole (Prevacid) 30 mg DAILY ORAL 02/08/17 09:00 03/10/17 08:59 02/13/17 08:46 Levothyroxine Sodium (Synthroid) 50 mcg DAILY@0630 ORAL 02/09/17 06:30 03/11/17 06:29 02/13/17 07:09 Midodrine (Pro-Amatine) 10 mg THREE TIMES A DAY ORAL 02/08/17 09:00 03/10/17 08:59 02/13/17 08:45 Oxycodone HCl (Roxicodone) 5 mg Q4H PRN ORAL severe pain 02/10/17 08:30 02/17/17 08:29 02/13/17 10:22 Thiamine HCl (Vitamin B1) 100 mg DAILY ORAL 02/09/17 09:00 03/11/17 08:59 02/13/17 08:45 NOHEMI CHAUDHRY Feb 13, 2017 10:37
--- NOTE | 2017-02-13 10:39 | Nephrology Progress Note ---
Assessment/Plan Problem List: (1) Liver cirrhosis (2) Alcoholic cirrhosis (3) Alcoholic pancreatitis (4) Hypothyroidism Assessment No renal issues- BP and UA and renal parameters OK Alcoholic liver disease and Cirrhosis with Ascitis Pancreatitis Anemia hypoThyroidism Plan Per GI- DC IV fluid Monitor renal parameters Anemia chen midodrine for low bp to med surg ? DC Subjective ROS Limited/Unobtainable: No Constitutional: Reports: malaise Objective Objective Last 24 Hour Vital Signs Date Time Temp Pulse Resp B/P (MAP) Pulse Ox O2 Delivery O2 Flow Rate FiO2 02/13/17 08:13 97.7 77 20 95/62 98 02/13/17 04:00 97.9 89 18 100/67 94 Room Air 02/13/17 00:41 97.9 82 17 103/65 96 Room Air 02/12/17 20:10 98.4 72 20 101/67 98 Room Air 02/12/17 16:48 98.3 87 20 97/64 98 Room Air 02/12/17 12:41 97.9 80 20 105/73 98 Room Air 02/12/17 12:00 77 Intake and Output 02/13/17 02/14/17 19:00 07:00 # Voids 1 Current Medications Medications (Trade) Dose Ordered Sig/Jodie Route PRN Reason Start Time Stop Time Status Last Admin Dose Admin Lansoprazole (Prevacid) 30 mg DAILY ORAL 02/08/17 09:00 03/10/17 08:59 02/13/17 08:46 Levothyroxine Sodium (Synthroid) 50 mcg DAILY@0630 ORAL 02/09/17 06:30 03/11/17 06:29 02/13/17 07:09 Midodrine (Pro-Amatine) 10 mg THREE TIMES A DAY ORAL 02/08/17 09:00 03/10/17 08:59 02/13/17 08:45 Oxycodone HCl (Roxicodone) 5 mg Q4H PRN ORAL severe pain 02/10/17 08:30 02/17/17 08:29 02/13/17 10:22 Thiamine HCl (Vitamin B1) 100 mg DAILY ORAL 02/09/17 09:00 03/11/17 08:59 02/13/17 08:45 Height (Feet): 5 Height (Inches): 10.00 Weight (Pounds): 150 General Appearance: no apparent distress Cardiovascular: normal rate Respiratory/Chest: decreased breath sounds Abdomen: distended Objective no change HOLDEN GILMORE Feb 13, 2017 10:39
[2017-02-13 12:00] VITALS: BP 105/72
--- NOTE | 2017-02-13 12:01 | Wound Care Consultation ---
Wound Assessment Wound Assessment #1: Wound Number: 1 Wound Present on Admission: Yes New Wound: No Status Change of Wound: No Wound Location Body Site: nose - bridge of nose Wound Type: scab - thick necrotic scab Coco Test: Does not Coco Wound Thickness: Full Thickness Wound Length: 1.0 Wound Width: 1.0 Wound Depth: utd Percent of Wound Black/Brown: 100 Wound Drainage Amount: None Wound Drainage Odor: None/Absent Tissue Surrounding Wound: Intact Wound General Appearance: Necrotic - scab, Clean/Dry Wound Assessment #2: Wound Number: 2 Wound Present on Admission: Yes New Wound: No Status Change of Wound: No Wound Location Body Site Modif: right Wound Location Body Site: elbow Wound Type: other - open wound with erythema and swelling to site. Coco Test: Does not Coco Wound Length: 0.5 Wound Width: 0.3 Wound Depth: 0.1 Percent of Wound [place]/Red: 100 Other Colors Identified: surrounding skin erythema 4.0cmx4.0cm Wound Drainage Description: Serous Wound Drainage Amount: Copious Wound Drainage Odor: None/Absent Tissue Surrounding Wound: Erythemic Wound General Appearance: Reddened Wound Comment #1 Bridge of nose thick necrotic scab. #2 Right elbow small open wound with erythema to surrounding tissue. patient states they are from his fall. Recommendation. -Local wound care as ordered. -Keep clean and dry. -Turn and reposition -Offload affected site. -Optimize nutrition. -Assess and follow up with MD for changes of condition. ZOE WAGNER Feb 13, 2017 12:01
--- NOTE | 2017-02-13 16:03 | Diagnostic Imaging Report ---
Indications: Ascites Technique: Ultrasound used to localize optimal puncture site. Sterile prepping and draping right lower quadrant. Local anesthesia with 1% lidocaine. Under real-time ultrasound guidance, puncture peritoneal space using paracentesis needle. Stylet removed. Catheter placed to vacuum bottle suction. Total 3 liters of clear yellow fluid aspirated. Patient tolerated procedure well, without immediate complication. Findings: Followup sonography demonstrates complete resolution of peritoneal fluid. Impression: Successful ultrasound-guided paracentesis, yielding 3 liters of clear yellow fluid
--- NOTE | 2017-02-13 18:39 | General Progress Note ---
Assessment/Plan Assessment/Plan ASSESSMENT AND RECOMMENDATIONS: 1. Thrombocytopenia secondary to underlying liver disease due to alcoholic liver cirrhosis, continue to closely monitor. 2. Positive occult blood. Rule out GI bleed. --> H&H currently stable, GI procedures on hold. 3. 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 4. 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 Continue to closely monitor. 5. Anemia secondary to chronic disease. Elevated ferritin. 6. Abdominal pain, due to likely cirrhosis. 7. Ascites status post paracentesis Subjective Allergies: Coded Allergies: PENICILLINS (Verified Allergy, Unknown, 02/07/17) All Systems: reviewed and negative except above Subjective no new complaints Objective Last 24 Hour Vital Signs Date Time Temp Pulse Resp B/P (MAP) Pulse Ox O2 Delivery O2 Flow Rate FiO2 02/13/17 12:00 98.2 68 20 105/72 97 02/13/17 08:13 97.7 77 20 95/62 98 02/13/17 04:00 97.9 89 18 100/67 94 Room Air 02/13/17 00:41 97.9 82 17 103/65 96 Room Air 02/12/17 20:10 98.4 72 20 101/67 98 Room Air Intake and Output 02/13/17 02/14/17 19:00 07:00 # Voids 1 Height (Feet): 5 Height (Inches): 10.00 Weight (Pounds): 150 General Appearance: no apparent distress EENT: normal ENT inspection Neck: normal alignment Respiratory/Chest: chest wall non-tender Abdomen: normal bowel sounds Extremities: non-tender Jonny Johnson Feb 13, 2017 18:39
--- NOTE | 2017-02-14 14:58 | Discharge Summary ---
Discharge Summary Hospital Course Date of Admission Feb 07, 2017 at 14:25 Date of Discharge Feb 13, 2017 at 15:30 Admitting Diagnosis ABD PAIN, ASCITES HPI Marques Alfaro is a 56 year old male who was admitted on Feb 07, 2017 at 14:25 for Abdominal Pain, Ascites Hospital Course dc summary #[id number] Discharge Medications Continued Medications: Furosemide* (Lasix*) 20 Mg Tablet 20 MG ORAL TWICE A DAY, TAB Levothyroxine Sodium* (Synthroid*) 75 Mcg Tablet 75 MCG ORAL DAILY, TAB Take in the morning on an empty stomach, at least 30 minutes before food. Midodrine (Midodrine HCl) 5 Mg Tablet 5 MG ORAL TID, TAB Neomycin Sulfate (Neomycin Sulfate) 500 Mg Tablet 500 MG ORAL QID, TAB Spironolact/Hydrochlorothiazid (Spironolactone-Hctz 25-25 Tab) 1 Each Tablet 1 TAB ORAL BID, TAB Discharge Discharge Disposition Patient was discharged to Homeless long term Discharge Diagnoses: Discharge Instructions Discharge Instructions Special Instructions I have been assigned to complete a D/C Summary on this account. I was not involved in the patient management Shanell Wood NP (Vanchtein) Feb 14, 2017 14:58
--- NOTE | 2017-02-14 22:45 | Discharge Summary 2 SIG ---
DATE OF ADMISSION: 02/07/2017 DATE OF DISCHARGE: 02/13/2017 REASON FOR ADMISSION: 56-year-old male with history of alcohol abuse, presented to emergency department with abdominal pain and distention. The patient also reported recent fall and back pain afterwards, He had difficulty with ambulation. The patient reported history of liver disease. He admitted having alcohol intake earlier that day. Workup in the emergency room revealed elevated lipase -597. Chest x-ray was negative for any acute cardiopulmonary pathology. Spine CT revealed no acute bony injury, but showed ascites and moderate degenerative changes. The patient was admitted with diagnosis of alcoholic cirrhosis and alcoholic pancreatitis for further management. HOSPITAL STAY: The patient was admitted. GI consult was requested. The patient subsequently undergone paracentesis x2, first paracentesis yielded 9 liters (done on 02/08/2017 ) and second paracenteses( done on 02/13/2017) yielded 3 liters. Fluid culture was negative. Therefore, the patient was ruled out for spontaneous bacterial peritonitis. The patient initially was on empiric antibiotics as per ID. Then, antibiotics were stopped and ID recommended to observe the patient off antibiotics. The patient had no fever, no leukocytosis, and no clinical evidence of infection. Stool for occult blood was positive; however, hemoglobin and hematocrit remained stable. Anemia workup revealed evidence of anemia of chronic disease, stable B12 and folate. Initially 1 liter of banana bag given. GI recommended outpatient esophagogastroduodenoscopy to evaluate for esophageal varices. The patient was counseled on abstinence from the alcohol. Pain specialist followed. Pain management provided as per pain specialist recommendations. The patient was working with physical and occupational therapists. Audio Production Manager followed the patient. According to physics technician, the patient had anemia secondary to chronic disease. Counts were clsoely monitored. The patient had a history of hypothyroidism , the patient was on levothyroxine. Thyroid function panel was checked. Magnesium was replaced. The patient was on oral thiamine. GI prophylaxis provided. Midodrine added for blood pressure support. Blood pressure was stable afterwards. Lipase down to normal -174. The patient was able to tolerate diet. No nausea. No vomiting. cemetery worker met with the patient regarding placement. Patient stated he would not utilize shelters and didn't require assistance from social services analyst. Bus tokens were provided. Patient stated he was aware of [facility] for follow up care. The patient was stable for discharge home. The patient was counseled on abstinence from the alcohol abuse. FINAL DIAGNOSES: 1. Alcoholic cirrhosis, 2. Alcoholic pancreatitis. 3. Ascites. 4. Status post paracentesis x2. 5. Anemia of chronic disease. 6. Alcohol abuse. 7. Hypothyroidism. DISCHARGE INSTRUCTIONS: The patient was discharged home. Follow up with primary medical doctor. DISCHARGE MEDICATIONS: See medication reconciliation list. Gallito Acevedo M.D. I have been assigned to dictate discharge summary on this account and I was not involved in the patient's management. Shanell PopJames J. Peters Va Medical CenterLucy N.P. DR: WADE JOB#: [id number] CC: TAI
--- NOTE | 2017-02-15 17:19 | Cardiology Report ---
APPROVED REPORT EKG Measurement Heart [id number] Sinus tachycardia Otherwise normal ECG
== END 2017-02-13 15:30 | disposition home or self-care (01) | DRG 280 ==
LOC: EDBD 12:28 → EMR 14:00 → 2E 14:25 → EDBEDREQ 14:31
PROC: 0W9G3ZZ Drainage of Peritoneal Cavity, Percutaneous Approach (ICD-10-PCS; principal; 2017-02-08)
DX: K70.31 Alcoholic cirrhosis of liver with ascites (principal); K85.20 Alcohol induced acute pancreatitis without necrosis or infection; D69.59 Other secondary thrombocytopenia; F10.10 Alcohol abuse, uncomplicated; R10.9 Unspecified abdominal pain; M54.9 Dorsalgia, unspecified; W19.XXXA Unspecified fall, initial encounter; E03.9 Hypothyroidism, unspecified; D63.8 Anemia in other chronic diseases classified elsewhere; Z88.0 Allergy status to penicillin; D75.89 Other specified diseases of blood and blood-forming organs
CPT/HCPCS: 36415; 71010; 72131; 76942; 80048; 80053; 80061; 81003; 82140; 82270; 82550; 82607; 82728; 82746; 82977; 83036; 83540; 83550; 83690; 83735; 83880; 84100; 84300; 84439; 84443; 84550; 85025; 85610; 85730; 86140; 87070; 87081; 87205; 88104; 93005; 94760; 99285; J2405

== ENCOUNTER 2017-04-07 13:07 | Emergency (ER) | payer MEDICAID, OTHER ==
[~2017-04-07] VITALS: Ht 175.3 cm; Wt 63.5 kg
[~2017-04-07 13:07] MED LIST: ACETAMINOPHEN500 M7 PO; LASIX20 M1 ORAL; MULTIVITAMINS1 EA14 PO; NEOMYCIN SULFA500 MG ORAL; PRO-AMATINE5 M1 ORAL; SPIRONOLACTONE1 EACH ORAL; SYNTHROID75 MCG ORAL
[2017-04-07 13:35] VITALS: BP 108/65
[2017-04-07 14:46] LABS: HEMATOCRIT 23.8 % (42.0-52.0); HEMOGLOBIN 7.6 G/DL (14.2-18.0); MEAN CORPUSCULAR VOLUME 115 FL (80-99); PLATELET COUNT 193 K/UL (150-450); RED BLOOD COUNT 2.07 M/UL (4.70-6.10); RED CELL DISTRIBUTION WIDTH 15.5 % (11.6-14.8)
[2017-04-07 14:47] LABS: INR 1.1 (0.9-1.1)
[2017-04-07 14:52] LABS: ANION GAP 10 mmol/L (5-15); BLOOD UREA NITROGEN 7 mg/dL (7-18); CALCIUM 7.6 MG/DL (8.5-10.1); CARBON DIOXIDE 23 MMOL/L (21-32); CHLORIDE 97 MMOL/L (98-107); CREATININE 0.7 MG/DL (0.55-1.30); POTASSIUM 4.4 MMOL/L (3.5-5.1); SODIUM 130 MMOL/L (136-145)
[2017-04-07 14:56] LABS: ALANINE AMINOTRANSFERASE 28 U/L (12-78); ALBUMIN/GLOBULIN RATIO 0.4 (1.0-2.7); ALKALINE PHOSPHATASE 171 U/L (46-116); ASPARTATE AMINO TRANSFERASE 66 U/L (15-37); BILIRUBIN,TOTAL 0.6 MG/DL (0.2-1.0)
[2017-04-07] MEDS ORDERED: Morphine Sulfate 4mg/ml Inj IVP ONE ×2 (15:15→17:15)
--- NOTE | 2017-04-07 15:51 | Diagnostic Imaging Report ---
Indication: Pain Technique: CT of the abdomen and pelvis utilizing automated exposure control with intravenous contrast. Venous scanning performed. CT dose: Total DLP 735.7 mGycm; CTDI vol 12 mGy Comparison: None Findings: Atelectasis noted in the lung bases. Heart is borderline enlarged. No pericardial effusion. The liver has a nodular contour compatible with cirrhosis. The gallbladder is contracted. No definite focal hepatic mass lesion is appreciated on this single phase study. Hepatic veins and portal veins appear patent. Multiple radiodensities are noted in the region of the spleen which may be sequela of prior surgery or injury. The spleen is not enlarged. Adrenal glands and pancreas are grossly unremarkable. There is a 1.1 cm cystic structure in the lower pole of the right kidney. Kidneys otherwise enhance symmetrically. No urinary tract stones or hydronephrosis bilaterally. Bladder is markedly distended. Prostate is not enlarged. There is no evidence of bowel obstruction. The appendix is normal. There is a large amount of abdominal and pelvic ascites. There is no free intraperitoneal air. No focal bowel wall thickening is appreciated. Abdominal aorta is normal in caliber with scattered atherosclerotic calcifications. Perigastric and periesophageal varices are noted. No bulky abdominal or pelvic lymphadenopathy is identified. There are multilevel degenerative changes of the spine. No acute osseous abnormality is seen. IMPRESSION: Cirrhosis and sequela of portal hypertension including large amount of ascites and portosystemic venous collaterals/varices. No bowel obstruction. No appreciable bowel inflammation however evaluation is limited due to lack of oral contrast and large volume ascites. Urinary bladder is moderately distended. Correlate for bladder outlet obstruction. Prostate is not markedly enlarged. Multilevel degenerative change of the spine. No acute osseous abnormality. Additional findings as above. The CT scanner at [facility] is accredited by the [employer] and the scans are performed using protocols designed to limit radiation exposure to as low as reasonably achievable to attain images of sufficient resolution adequate for diagnostic evaluation.
[2017-04-07] MEDS ORDERED: cefTRIAXone 2 GM in NS 55 ML IVPB ONE (17:15)
[2017-04-07] MEDS ORDERED: cefTRIAXone 1 GM in NS 55 ML IVPB ONE (17:15)
--- NOTE | 2017-04-07 17:32 | Diagnostic Imaging Report ---
Indication: Pain Technique: XRAY Chest 1v Comparison: 02/07/2017 Findings: Rotated to the right. Heart size and mediastinal contours are stable. There is patchy atelectasis at the right base. Otherwise, there is no focal airspace consolidation, pleural effusion or pneumothorax. Surgical material/coils project in the left upper quadrant. No acute osseous abnormality seen. Impression: Streaky atelectasis at the right base. Otherwise no focal consolidation, pleural effusion or pneumothorax.
--- NOTE | 2017-04-07 17:36 | Emergency Room Report ---
History of Present Illness General Chief Complaint: Generalized Weakness Source: Patient (ZEKE SOTELO) Present Illness HPI The patient is a 56-year-old male with a history of hepatitis, liver cirrhosis due to alcoholism, pancreatitis, hypertension presenting for abdominal pain and abdominal distention. The patient was admitted to this hospital 2 months prior for ascites he states that this feels the same for him. Pain is a 9/10 dull ache to the entire abdomen. Worse with movement and touch. He denies radiating pain. He denies other symptoms including fever, chills, diarrhea, melena, hematochezia, hematemesis (ZEKE SOTELO.[email or web address]) Allergies: Coded Allergies: PENICILLINS (Verified Allergy, Unknown, 02/07/17) Patient History Past Medical History: see triage record Pertinent Family History: none Reviewed Nursing Documentation: PMH: Agreed, PSxH: Agreed (ZEKE SOTELO) Nursing Documentation-PMH Past Medical History: No History, Except For Hx Cardiac Problems: No - HEAD TRAUMA, ruptured liver FALL OFF A 2 STORY ROOF Hx Hypertension: No Hx Pacemaker: No Hx Asthma: No Hx COPD: No Hx Diabetes: No Hx Cancer: No Hx Gastrointestinal Problems: Yes - Hepatitis C Hx Dialysis: No History Of Psychiatric Problem: No Hx Neurological Problems: No Hx Cerebrovascular Accident: No Hx Seizures: No (ZEKE SOTELO P.AZunilda) Review of Systems All Other Systems: negative except mentioned in HPI (ZEKE SOTELO.[email or web address]) Physical Exam Vital Signs Date Time Temp Pulse Resp B/P (MAP) Pulse Ox O2 Delivery O2 Flow Rate FiO2 04/07/17 13:25 97.5 110 18 106/65 98 Room Air Sp02 EP Interpretation: reviewed, normal General Appearance: no apparent distress, alert, GCS 15, non-toxic Head: normocephalic, atraumatic Eyes: bilateral eye normal inspection, bilateral eye PERRL ENT: hearing grossly normal, normal pharynx, no angioedema, normal voice Neck: full range of motion, supple/symm/no masses Respiratory: chest non-tender, lungs clear, normal breath sounds, speaking full sentences Gastrointestinal: distended - diffuse, tenderness - diffuse Rectal: deferred Genitourinary: normal inspection, no CVA tenderness Musculoskeletal: back normal, gait/station normal, normal range of motion, non- tender Neurologic: alert, oriented x3, responsive, motor strength/tone normal, sensory intact, speech normal Psychiatric: judgement/insight normal, memory normal, mood/affect normal, no suicidal/homicidal ideation Skin: normal color, no rash, warm/dry, well hydrated (ZEKE SOTELO) Procedures Additional Procedure Procedure Narrative Paracentesis Patient placed in supine position. Abdomen exposed. Ultrasound is used to identify area of fluid in the abdomen. Betadine applied to clean the area. Lidocaine used to numb the area. Using sterile technique I used an ultrasound to insert the paracentesis needle and amandeep approximately 90cc of straw colored fluid. The fluid was sent for testing. Patient tolerated procedure without complication (EVARISTO ALEJANDRA M.D.) Medical Decision Making PA Attestation Dr. Alejandra is my supervising physician. Patient management was discussed with my supervising physician (ZEKE SOTELO) Diagnostic Impression: Primary Impression: Liver cirrhosis Qualified Codes: K74.60 - Unspecified cirrhosis of liver Additional Impression: Ascites Qualified Codes: R18.8 - Other ascites ER Course The patient is a 56-year-old male with a history of hepatitis, liver cirrhosis due to alcoholism, pancreatitis, hypertension presenting for abdominal pain and abdominal distention. Differential diagnoses considered include but not limited to ascites, bacterial peritonitis, gastritis, pancreatitis, appendicitis, SBO, among others PE: afebrile. NAD RRR Lungs CTA bilat Abd is diffusely distended and tender Bilat 1+ pitting edema to lower legs Labs: There is leukocytosis and anemia. These are changed from previous labs Lipase and alkaline phosphatase somewhat elevated. Consistent with previous labs ABD/Pelvic CT shows cirrhosis with large amount of ascites and varices the patient i given IV pain medication as well as antibiotics for possible peritonitis Pleas see Dr. Alejandra's note for paracentesis note. This fluid is being sent for testing The patient remains in stable condition and will be transferred to another hospital for further care. Dr. Alejandra has spoken with the admitting physician. The patient agrees with this plan Laboratory Tests Test 04/07/17 14:08 04/07/17 17:00 04/07/17 17:31 White Blood Count 14.0 K/UL (4.8-10.8) H Red Blood Count 2.07 M/UL (4.70-6.10) L Hemoglobin 7.6 G/DL (14.2-18.0) L Hematocrit 23.8 % (42.0-52.0) L Mean Corpuscular Volume 115 FL (80-99) H Mean Corpuscular Hemoglobin 36.6 PG (27.0-31.0) H Mean Corpuscular Hemoglobin Concent 31.8 G/DL (32.0-36.0) L Red Cell Distribution Width 15.5 % (11.6-14.8) H Platelet Count 193 K/UL (150-450) Mean Platelet Volume 5.8 FL (6.5-10.1) L Neutrophils (%) (Auto) % (45.0-75.0) Lymphocytes (%) (Auto) % (20.0-45.0) Monocytes (%) (Auto) % (1.0-10.0) Eosinophils (%) (Auto) % (0.0-3.0) Basophils (%) (Auto) % (0.0-2.0) Differential Total Cells Counted 100 Neutrophils % (Manual) 73 % (45-75) Lymphocytes % (Manual) 18 % (20-45) L Monocytes % (Manual) 7 % (1-10) Eosinophils % (Manual) 1 % (0-3) Basophils % (Manual) 0 % (0-2) Band Neutrophils 1 % (0-8) Platelet Estimate Adequate Platelet Morphology Normal Polychromasia 1+ Anisocytosis 1+ Macrocytosis 3+ Prothrombin Time 12.0 SEC (9.30-11.50) H Prothrombin Time INR 1.1 (0.9-1.1) PTT 30 SEC (23-33) Sodium Level 130 MMOL/L (136-145) L Potassium Level 4.4 MMOL/L (3.5-5.1) Chloride Level 97 MMOL/L (98-107) L Carbon Dioxide Level 23 MMOL/L (21-32) Anion Gap 10 mmol/L (5-15) Blood Urea Nitrogen 7 mg/dL (7-18) Creatinine 0.7 MG/DL (0.55-1.30) Estimate Glomerular Filtration Rate > 60 mL/min (>60) Glucose Level 103 MG/DL (74-106) Calcium Level 7.6 MG/DL (8.5-10.1) L Total Bilirubin 0.6 MG/DL (0.2-1.0) Aspartate Amino Transferase (AST) 66 U/L (15-37) H Alanine Aminotransferase (ALT) 28 U/L (12-78) Alkaline Phosphatase 171 U/L (46-116) H Troponin I 0.017 ng/mL (0.000-0.056) Total Protein 7.7 G/DL (6.4-8.2) Albumin 2.0 G/DL (3.4-5.0) L Globulin 5.7 g/dL Albumin/Globulin Ratio 0.4 (1.0-2.7) L Lipase 508 U/L (73-393) H Body Fluid Source Pending Body Fluid Volume Pending Body Fluid Appearance Pending Body Fluid RBC Pending Body Fluid Total Nucleated Cells Pending Body Fluid Polynuclear WBCs (%) Pending Body Fluid Mononuclear WBCs (%) Pending Body Fluid Mesothelial Cells (%) Pending Lactic Acid Level Pending Lab Results Impression There is leukocytosis and anemia. These are changed from previous labs Lipase and alkaline phosphatase somewhat elevated. Consistent with previous labs (ZEKE SOTELO) Labs Test 04/07/17 14:08 04/07/17 17:00 04/07/17 17:31 White Blood Count 14.0 K/UL (4.8-10.8) Red Blood Count 2.07 M/UL (4.70-6.10) Hemoglobin 7.6 G/DL (14.2-18.0) Hematocrit 23.8 % (42.0-52.0) Mean Corpuscular Volume 115 FL (80-99) Mean Corpuscular Hemoglobin 36.6 PG (27.0-31.0) Mean Corpuscular Hemoglobin Concent 31.8 G/DL (32.0-36.0) Red Cell Distribution Width 15.5 % (11.6-14.8) Platelet Count 193 K/UL (150-450) Mean Platelet Volume 5.8 FL (6.5-10.1) Neutrophils (%) (Auto) % (45.0-75.0) Lymphocytes (%) (Auto) % (20.0-45.0) Monocytes (%) (Auto) % (1.0-10.0) Eosinophils (%) (Auto) % (0.0-3.0) Basophils (%) (Auto) % (0.0-2.0) Differential Total Cells Counted 100 Neutrophils % (Manual) 73 % (45-75) Lymphocytes % (Manual) 18 % (20-45) Monocytes % (Manual) 7 % (1-10) Eosinophils % (Manual) 1 % (0-3) Basophils % (Manual) 0 % (0-2) Band Neutrophils 1 % (0-8) Platelet Estimate Adequate Platelet Morphology Normal Polychromasia 1+ Anisocytosis 1+ Macrocytosis 3+ Prothrombin Time 12.0 SEC (9.30-11.50) Prothromb Time International Ratio 1.1 (0.9-1.1) Activated Partial Thromboplast Time 30 SEC (23-33) Sodium Level 130 MMOL/L (136-145) Potassium Level 4.4 MMOL/L (3.5-5.1) Chloride Level 97 MMOL/L (98-107) Carbon Dioxide Level 23 MMOL/L (21-32) Anion Gap 10 mmol/L (5-15) Blood Urea Nitrogen 7 mg/dL (7-18) Creatinine 0.7 MG/DL (0.55-1.30) Estimat Glomerular Filtration Rate > 60 mL/min (>60) Glucose Level 103 MG/DL (74-106) Calcium Level 7.6 MG/DL (8.5-10.1) Total Bilirubin 0.6 MG/DL (0.2-1.0) Aspartate Amino Transf (AST/SGOT) 66 U/L (15-37) Alanine Aminotransferase (ALT/SGPT) 28 U/L (12-78) Alkaline Phosphatase 171 U/L (46-116) Troponin I 0.017 ng/mL (0.000-0.056) Total Protein 7.7 G/DL (6.4-8.2) Albumin 2.0 G/DL (3.4-5.0) Globulin 5.7 g/dL Albumin/Globulin Ratio 0.4 (1.0-2.7) Lipase 508 U/L (73-393) Body Fluid Source Paracentesis Body Fluid Volume 25 mL Body Fluid Appearance Hazy Body Fluid RBC 395 /CUMM Body Fluid Total Nucleated Cells 55 /CUMM Body Fluid Polynuclear WBCs (%) 5 % Body Fluid Mononuclear WBCs (%) 45 % Body Fluid Mesothelial Cells (%) 50 % Lactic Acid Level 2.80 mmol/L (0.66-2.22) (EVARISTO ALEJANDRA M.D.) Chest X-Ray Diagnostic Results Chest X-Ray Diagnostic Results : Chest X-Ray Ordered: Yes # of Views/Limited/Complete: 1 View Indication: Other - abd pain EP Interpretation: Yes PA Xray: Interpretation reviewed, by supervising MD, and agrees with findings. Interpretation: no consolidation, no effusion, no pneumothorax, no acute cardiopulmonary disease Impression: No acute disease Electronically Signed by: Zeke Sotelo PA-C (ZEKE SOTELO) CT/MRI/US Diagnostic Results CT/MRI/US Diagnostic Results : Imaging Test Ordered: Abd/pelvis CT Impression Cirrhosis and sequela of portal hypertension including large amount of ascites and portosystemic venous collaterals/varices. No bowel obstruction. No appreciable bowel inflammation however evaluation is limited due to lack of oral contrast and large volume ascites. Urinary bladder is moderately distended. Correlate for bladder outlet obstruction. Prostate is not markedly enlarged. Multilevel degenerative change of the spine. No acute osseous abnormality. Additional findings as above. (ZEKE SOTELO.Matt) Last Vital Signs Date Time Temp Pulse Resp B/P (MAP) Pulse Ox O2 Delivery O2 Flow Rate FiO2 04/07/17 13:35 97.5 110 17 108/65 97 Room Air Status: improved (ZEKE SOTELO) Status: improved (EVARISTO ALEJANDRA M.D.) Disposition: [facility] Condition: Serious Referrals: [facility],REFERR[facility] (PCP) ZEKE SOTELO Apr 07, 2017 17:36 EVARISTO ALEJANDRA M.D. Apr 07, 2017 20:04
[2017-04-07 17:39] VITALS: BP 100/62
[2017-04-07 19:57] VITALS: BP 100/62
== END 2017-04-07 19:59 | disposition home or self-care (01) ==
LOC: EMR 16:33
DX: K70.31 Alcoholic cirrhosis of liver with ascites (principal); B19.20 Unspecified viral hepatitis C without hepatic coma; D72.829 Elevated white blood cell count, unspecified; D64.9 Anemia, unspecified; K76.6 Portal hypertension; F10.20 Alcohol dependence, uncomplicated
CPT/HCPCS: 36415; 49083; 71045; 74177; 80053; 83605; 83690; 84484; 85007; 85025; 85610; 85730; 87040; 87070; 87205; 89051; 96374; 96375; 99285; J0696; J2270; J2405; Q9967; Z7502

== ENCOUNTER 2018-06-08 16:36 | Emergency (ER) | payer OTHER ==
[~2018-06-08] VITALS: Ht 172.7 cm; Wt 63.5 kg
[2018-06-08] MEDS ORDERED: HYDROcodone/Acetamin 5/325 tab ORAL ONE ×2 (17:30→19:15)
[2018-06-08] MEDS ORDERED: Dicyclomine HCl 10mg/5ml oral soln ORAL ONE (17:30)
[2018-06-08] MEDS ORDERED: Lidocaine 2% Visc 15ml soln ORAL ONE (17:30)
[2018-06-08] MEDS ORDERED: Mylanta II UD 30ml ORAL ONE (17:30)
[2018-06-08 17:44] LABS: BASOPHILS % (AUTO) 1.4 % (0.0-2.0); EOSINOPHILS % (AUTO) 1.3 % (0.0-3.0); HEMATOCRIT 28.5 % (42.0-52.0); HEMOGLOBIN 9.2 G/DL (14.2-18.0); LYMPHOCYTES % (AUTO) 28.6 % (20.0-45.0); MEAN CORPUSCULAR VOLUME 98 FL (80-99); MONOCYTES % (AUTO) 8.7 % (1.0-10.0); PLATELET COUNT 162 K/UL (150-450); RED BLOOD COUNT 2.91 M/UL (4.70-6.10); RED CELL DISTRIBUTION WIDTH 15.4 % (11.6-14.8); WHITE BLOOD COUNT 6.3 K/UL (4.8-10.8)
[2018-06-08 17:46] VITALS: BP 117/74
--- NOTE | 2018-06-08 17:52 | NUR ---
ED Nurse Note: Patient brought in by ambulance from [id number]. Patient c/o nausea, vomiting, diarrhea for the last 4 days. Patient is alert and awake, ambulatory.
[2018-06-08 18:19] LABS: ANION GAP 17 mmol/L (5-15); BLOOD UREA NITROGEN 10 mg/dL (7-18); CALCIUM 8.4 MG/DL (8.5-10.1); CARBON DIOXIDE 24 MMOL/L (21-32); CHLORIDE 99 MMOL/L (98-107); CREATININE 0.8 MG/DL (0.55-1.30); POTASSIUM 4.2 MMOL/L (3.5-5.1); SODIUM 140 MMOL/L (136-145)
[2018-06-08 18:27] LABS: ALANINE AMINOTRANSFERASE 29 U/L (12-78); ALBUMIN 3.3 G/DL (3.4-5.0); ALBUMIN/GLOBULIN RATIO 0.7 (1.0-2.7); ALKALINE PHOSPHATASE 108 U/L (46-116); ASPARTATE AMINO TRANSFERASE 88 U/L (15-37); BILIRUBIN,TOTAL 0.7 MG/DL (0.2-1.0)
--- NOTE | 2018-06-08 18:52 | NUR ---
ED Nurse Note: food provided as Dr. Bryce lovett for the pt to eat.
[2018-06-08] MEDS ORDERED: DICYCLOMINE HCL10 MG PO (19:01)
[2018-06-08] MEDS ORDERED: RANITIDINE HCL150 MG ORAL (19:01)
[2018-06-08 19:23] VITALS: BP 124/76
[2018-06-08 19:33] VITALS: BP 124/76
--- NOTE | 2018-06-08 19:33 | NUR ---
ER DISCHARGE NOTE: Patient is cleared to be discharged per ERMD, pt is aox4, on room air, with stable vital signs. pt was given dc instructions, pt was able to verbalize understanding, pt id band and iv site removed without complications. pt is able to ambulate with steady gait. pt took all belongings. taxi was called for this patient to provide transportation. Patient stated he is going to the addressed stated on the facesheet. patient is alert and oriented, escorted patient to the waiting room while waiting for taxi. clothing was adequate for the patient.
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
== END 2018-06-08 19:33 | disposition home or self-care (01) ==
LOC: EDBD 16:36 → EMR 17:00
DX: K52.9 Noninfective gastroenteritis and colitis, unspecified (principal); Z88.0 Allergy status to penicillin
CPT/HCPCS: 36415; 80053; 83690; 85025; 96361; 96374; 96375; 99284; J2405; S0028